=== PATIENT | male | born 1980 | race Caucasian/White ===

== ENCOUNTER 2021-01-22 14:42 | Observation (INO) | payer SELFPAY ==
[2021-01-22 14:47] VITALS: BP 111/62; PULSE 99; RESP 20; TEMP 36.6; O2SAT 95; BMI 22.9
--- NOTE | 2021-01-22 14:59 | PC.NURSE ---
Patient is positive on the SI screening. Treatment room is being cleaned at this time to get patient back. Sitter placed next to patient in waiting room until room is clean. 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
--- NOTE | 2021-01-22 15:25 | ECG_ITS ---
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 Measurements Intervals [place] Rate: 86 P: 80 ND: 177 QRS: 78 QRSD: 94 T: 158 QT: 416 QTc: 499 Interpretive Statements SINUS RHYTHM NONSPECIFIC ST & T-WAVE ABNORMALITY No previous ECG available for comparison Electronically Signed On 01-24-2021 8:00:08 CDT by Bao Carbajal M.D. [id number]
--- NOTE | 2021-01-22 15:25 | ED_ITS ---
HPI - Psych General: Chief Complaint: Psychiatric Symptoms Stated Complaint: DETOX Time Seen by Provider: 01/22/21 15:13 History of Present Illness: HPI Narrative: This patient is a 40-year-old male who presents to the emergency department with complaint of suicidal ideation. Then patient corrects himself and states that he is here because he needs a place to stay because he wants to check himself into [place] [address] to have a kick of methamphetamine. Patient states [facility] [address] facility cannot put him in the their facility to 3 days from now. Patient states that he was at the [facility] in [place] last night for evaluation was there for for several hours and then was discharged home. Patient admits that he did use drugs again today prior to returning to the hospital. Will do medical evaluation treat as needed. MD complaint: suicidal ideation and other Associated psychiatric symptoms: suicidal ideation Associated symptoms: Reports suicidal ideation; Deny depression Review of Systems General: Reports: 10 or more systems reviewed and unremarkable except in HPI and below Const: Denies: fever(s), chills, body aches or fatigue Eyes: Denies: change in vision or blurry vision ENMT: Denies: throat pain, hoarseness or mouth pain Card: Denies: chest pain, palpitations, irregular heart rhythm, edema, swelling of feet/ankles or lightheadedness Resp: Denies: dyspnea, productive cough, non-productive cough, wheezing or pain on inspiration GI: Denies: abdominal pain, nausea or vomiting : Denies: flank pain, dysuria, urinary frequency, urinary urgency or urinary hesitancy Musc: Denies: neck pain, back pain, extremity pain, extremity swelling, joint pain, joint swelling, joint redness, joint warmth or limited range of motion Skin/Breast: Denies: rash, pruritus, erythema or skin tenderness Neuro: Denies: headache(s), numbness in extremities or weakness in extremities Psych: Reports: suicidal ideation; Denies: depression Physical Exam Const: COMMON NORMALS: no acute distress, average body habitus, patient oriented x3, no limitations, healthy appearing, alert and well nourished HENMT: COMMON NORMALS: normocephalic, atraumatic, hearing grossly normal bilaterally, external ears normal, EAC's normal, TM's normal bilaterally, Normal external nose present, Normal nasal mucous membranes and turbinates present, moist oral mucous membranes, oropharynx normal, dentition normal and gingiva normal HEAD & SCALP: normocephalic and atraumatic NOSE: Normal external nose present and Normal nasal mucous membranes and turbinates present EXTERNAL EAR: Yes external ears normal EXTERNAL AUDITORY CANAL: EAC's normal TYMPANIC MEMBRANE: TM's normal bilaterally Neck/C-Spine: COMMON NORMALS: full ROM, no lymphadenopathy, supple, no meningeal signs, no JVD, Thyroid normal and No carotid bruits THYROID: Thyroid normal Chest: COMMONS NORMALS: normal inspection of the chest, normal palpation of entire chest wall, normal inspection of the breasts and normal palpation of the breasts Breast/axilla inspection: Yes normal inspection of the breasts BREAST/AXILLA PALPATION: Yes normal palpation of the breasts Resp: COMMON NORMALS: normal respiratory effort, No retractions, No use of accessory muscles, clear to auscultation bilaterally and percussion normal AUSCULTATION: clear to auscultation bilaterally PERCUSSION: percussion normal Cardio: COMMON NORMALS: no JVD, regular rate, regular rhythm, S1 normal heart sound present, S2 normal heart sound present, No gallops present (Cardio), No clicks present (Cardio), No murmurs present (Cardio), No rub (Cardio) and Peripheral pulses 2+ throughout RATE: regular rate RHYTHM: regular rhythm HEART SOUNDS: S1 normal heart sound present and S2 normal heart sound present PERIPHERAL PULSES: Peripheral pulses 2+ throughout GI: COMMON NORMALS: Normal to inspection, nondistended, normoactive bowel sounds present, Soft to palpation, non-tender, No hepatosplenomegaly present, no masses and no bruits PALPATION: Yes Soft to palpation and Yes No hepatosplenomegaly present : COMMON NORMALS: Yes no CVA tenderness BLADDER/KIDNEY EXAM: Yes no CVA tenderness Back/Pelvis: COMMON NORMALS: no CVA tenderness, thoracic and lumbar spine normal to inspection, no thoracic nor lumbar tenderness, thoraco-lumbar ROM no rmal and straight leg raise negative bilaterally Extremity: COMMON NORMALS: normal to inspection, full ROM, capillary refill normal, no joint enlargement, no clubbing, cyanosis or edema, no calf tenderness and no pedal edema Neuro: COMMON NORMALS: patient oriented x3 SENSORIUM/ORIENTATION: Yes alert MENINGEAL SIGNS: Yes no meningeal signs Face to Face: Restrn/Seclusion Events leading up to initiation: Verbalizing threat to self or others Evaluation of patient's immediate situation: Alert and oriented and No signs of physical distress Recent labs reviewed: Yes Review of medications: Yes Course Consultations: Consultation #1: I did discuss at length with Dr. Barron psychiatry who agrees to see the patient. He will see the patient due to patient's complaint of concerning for may be suicidal ideation. Time: 15:35 Consultation #2: Dr. Barron is agreeable to admit the patient for further evaluation for suicidal ideation and drug abuse. He will write additional orders. Time: 17:45 Vital Signs: Vital signs: Vital Signs Temperature 97.8 F 01/22/21 14:47 Pulse Rate 99 01/22/21 14:47 Respiratory Rate 20 H 01/22/21 14:47 Blood Pressure 111/62 01/22/21 14:47 Pulse Oximetry 95 01/22/21 14:47 MDM - Psych Differential Diagnosis: Psych Differential Diagnosis: Likely acute psychosis, suicidal ideation and drug-induced psychotic disorder Medical Records: Attestation: I reviewed the patient's medical records. Lab Data: Attestation: I reviewed the patient's lab results. Labs: Lab Results 01/22/21 01/22/21 01/22/21 Range/Units 13:50 13:50 15:45 WBC 7.5 (4.0-10.0) 10^3/ uL RBC 4.61 (4.1-5.3) 10^6/u L Hgb 15.1 (11.7-16.6) g/dL Hct 45.6 (42.0-52.0) % MCV 98.9 H (80-94) fL MCH 32.8 (28.0-34.0) pg MCHC 33.1 (30.0-36.0) g/dL RDW 12.6 (12.1-15.1) % Plt Count 232 (130-400) 10^3/c mm MPV 9.5 (7.4-10.4) fL Neut % (Auto) 57.0 % Lymph % (Auto) 28.8 % Sebastian % (Auto) 9.1 % Eos % (Auto) 4.5 % Baso % (Auto) 0.5 % Neut # (Auto) 4.28 (1.8-7.7) 10^3/u L Lymph # (Auto) 2.2 (0.8-4.8) 10^3/u L Sebastian # (Auto) 0.7 (0.2-0.9) 10^3/u L Eos # (Auto) 0.3 (0.0-0.8) 10^3/u L Baso # (Auto) 0.0 (0.0-0.1) 10^3/u L Nucleated RBC % (a uto) 0 % Nucleated RBCs # 0.0 /100WBC Sodium 139 (136-145) mmol/L Potassium 3.5 (3.5-5.1) mmol/L Chloride 102 (98-107) mmol/L Carbon Dioxide 27 (22-29) mmol/L Anion Gap 13.5 (5-19) BUN 15 (6-20) mg/dL Creatinine 0.9 (0.7-1.2) mg/dL GFR Calculation 93.9 (90-130) mL/min Glucose 78 (65-115) mg/dL Calculated Osmolal ity 288 (285-295) mOsm/k g Calcium 8.3 L (8.5-10.5) mg/dL Total Bilirubin 0.9 (0.15-1.2) mg/dL AST 20 (0-40) U/L ALT 21 (0-41) U/L Alkaline Phosphata se 86 (40-130) IU/L Total Protein 7.0 (6.6-8.7) g/dL Albumin 4.2 (3.5-5.2) g/dL Globulin 2.8 (1.3-4.6) g/dL Urine Color Yellow (Yellow) Urine Appearance Clear (CLEAR) Urine pH 5 (5-7) Ur Specific Gravit y 1.010 (1.005-1.030) Urine Protein Neg (Negative) Urine Glucose (UA) Norm (Normal) Urine Ketones Negative (Negative) Urine Blood Neg (Negative) Urine Nitrate Negative (Negative) Urine Bilirubin Neg (Negative) Urine Urobilinogen 4 H (Negative) mg/dL Ur Leukocyte Leela ase Negative (Negative) Salicylates < 0.3 L (3-10) mg/dL Urine Opiates Scre en (Negative) ng/mL Acetaminophen < 5.0 L (10-30) ug/mL Ur Barbiturates Sc reen (Negative) ng/mL Ur Phencyclidine S crn (Negative) ng/mL Ur Amphetamines Sc reen (Negative) ng/mL U Benzodiazepines Scrn (Negative) ng/mL Urine Cocaine Scre en (Negative) ng/mL U Marijuana (THC) Screen (Negative) ng/mL 01/22/21 Range/Units 15:45 WBC (4.0-10.0) 10^3/ uL RBC (4.1-5.3) 10^6/u L Hgb (11.7-16.6) g/dL Hct (42.0-52.0) % MCV (80-94) fL MCH (28.0-34.0) pg MCHC (30.0-36.0) g/dL RDW (12.1-15.1) % Plt Count (130-400) 10^3/c mm MPV (7.4-10.4) fL Neut % (Auto) % Lymph % (Auto) % Sebastian % (Auto) % Eos % (Auto) % Baso % (Auto) % Neut # (Auto) (1.8-7.7) 10^3/u L Lymph # (Auto) (0.8-4.8) 10^3/u L Sebastian # (Auto) (0.2-0.9) 10^3/u L Eos # (Auto) (0.0-0.8) 10^3/u L Baso # (Auto) (0.0-0.1) 10^3/u L Nucleated RBC % (a uto) % Nucleated RBCs # /100WBC Sodium (136-145) mmol/L Potassium (3.5-5.1) mmol/L Chloride (98-107) mmol/L Carbon Dioxide (22-29) mmol/L Anion Gap (5-19) BUN (6-20) mg/dL Creatinine (0.7-1.2) mg/dL GFR Calculation (90-130) mL/min Glucose (65-115) mg/dL Calculated Osmolal ity (285-295) mOsm/k g Calcium (8.5-10.5) mg/dL Total Bilirubin (0.15-1.2) mg/dL AST (0-40) U/L ALT (0-41) U/L Alkaline Phosphata se (40-130) IU/L Total Protein (6.6-8.7) g/dL Albumin (3.5-5.2) g/dL Globulin (1.3-4.6) g/dL Urine Color (Yellow) Urine Appearance (CLEAR) Urine pH (5-7) Ur Specific Gravit y (1.005-1.030) Urine Protein (Negative) Urine Glucose (UA) (Normal) Urine Ketones (Negative) Urine Blood (Negative) Urine Nitrate (Negative) Urine Bilirubin (Negative) Urine Urobilinogen (Negative) mg/dL Ur Leukocyte Leela ase (Negative) Salicylates (3-10) mg/dL Urine Opiates Scre en Negative (Negative) ng/mL Acetaminophen (10-30) ug/mL Ur Barbiturates Sc reen Negative (Negative) ng/mL Ur Phencyclidine S crn Negative (Negative) ng/mL Ur Amphetamines Sc reen Positive H (Negative) ng/mL U Benzodiazepines Scrn Negative (Negative) ng/mL Urine Cocaine Scre en Negative (Negative) ng/mL U Marijuana (THC) Screen Negative (Negative) ng/mL EKG Data^: EKG 1: Attestation: I personally reviewed and interpreted this EKG as follows: EKG interpretation date: 01/22/21 EKG interpretation time: 16:37 Prior EKG tracings: not available for review Interpretation: Sinus rhythm with nonspecific EKG changes heart rate 86 Discharge Plan Discharge Patient Disposition: Placed in Observation Clinical Impression: Drug abuse, Suicidal ideation Condition: Stable Prescriptions: No Action No Known Home Medications RF: 0 Coding Level of Care Code ED 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
[2021-01-22 15:48] LABS: Add Urine Microscopic? NO; Charge for UA Resulting for Rev
[2021-01-22 15:54] LABS: Bilirubin Urine Neg (Negative); Blood Urine Neg (Negative); Glucose Urine UA Norm (Normal); Ketones Urine Negative (Negative); Leukocyte Esterase Urine Negative (Negative); Nitrate Urine Negative (Negative); Protein Urine Neg (Negative); Urine Appearance Clear (CLEAR); Urine Color Yellow (Yellow); Urobilinogen Urine 4 mg/dL (Negative); pH Urine 5 (5-7)
[2021-01-22 16:02] LABS: Amphetamines Screen Urine Positive (Negative); Barbiturates Screen Urine Negative (Negative); Benzodiazepines Screen Urine Negative (Negative); Cocaine Screen Urine Negative (Negative); Opiate Screen Urine Negative (Negative); PCP Screen Urine Negative (Negative); THC Screen Urine Negative (Negative)
[2021-01-22 16:04] LABS: Basophils % 0.5 %; Eosinophils # 0.3 10^3/uL (0.0-0.8); Eosinophils % 4.5 %; Hematocrit 45.6 % (42.0-52.0); Hemoglobin 15.1 g/dL (11.7-16.6); Lymphocytes # 2.2 10^3/uL (0.8-4.8); Lymphocytes % 28.8 %; Mean Corpuscular HGB Conc 33.1 g/dL (30.0-36.0); Mean Corpuscular Hemoglobin 32.8 pg (28.0-34.0); Mean Corpuscular Volume 98.9 fL (80-94); Mean Platelet Volume 9.5 fL (7.4-10.4); Monocytes # 0.7 10^3/uL (0.2-0.9); Monocytes % 9.1 %; Neutrophils # 4.28 10^3/uL (1.8-7.7); Nucleated Red Blood Cells % 0 %; Platelet Count 232 10^3/cmm (130-400); Red Blood Count 4.61 10^6/uL (4.1-5.3); Red Cell Distribution Width 12.6 % (12.1-15.1); White Blood Count 7.5 10^3/uL (4.0-10.0)
[2021-01-22 16:19] LABS: Alanine Aminotransferase 21 U/L (0-41); Albumin Level 4.2 g/dL (3.5-5.2); Alkaline Phosphatase 86 IU/L (40-130); Anion Gap 13.5 (5-19); Aspartate Amino Transferase 20 U/L (0-40); Blood Urea Nitrogen 15 mg/dL (6-20); Calcium 8.3 mg/dL (8.5-10.5); Carbon Dioxide 27 mmol/L (22-29); Chloride 102 mmol/L (98-107); Globulin 2.8 g/dL (1.3-4.6); Glomerular Filtration Rate 93.9 mL/min (90-130); Glucose 78 mg/dL (65-115); Osmolality Calculated 288 mOsm/kg (285-295); Potassium 3.5 mmol/L (3.5-5.1); Sodium 139 mmol/L (136-145); Total Bilirubin 0.9 mg/dL (0.15-1.2)
[2021-01-22 16:21] LABS: Acetaminophen < 5.0 ug/mL (10-30); Salicylate < 0.3 mg/dL (3-10)
[2021-01-22 18:25] VITALS: PULSE 75; RESP 17; O2SAT 100
[2021-01-22 19:37] VITALS: BP 122/82; PULSE 82; RESP 17; TEMP 36.9; O2SAT 97
[2021-01-22] MEDS: simethicone 80 mg Chew PO (21:22)
[2021-01-22] MEDS: trazodone 50 mg Tablet PO (21:22)
[2021-01-22] MEDS: hyDROXYzine 25 mg Capsule 50 MG PO (21:22)
[2021-01-22] MEDS: nicotine 2 mg Gum BUCCAL (21:23)
[2021-01-22 22:00] VITALS: BP 109/68; PULSE 87; RESP 18; TEMP 36.7; O2SAT 95
[2021-01-23 06:00] VITALS: BP 95/56; PULSE 74; RESP 15; TEMP 36.8; O2SAT 98
--- NOTE | 2021-01-23 13:12 | P.SS_ITS ---
Short Stay Summary Providers Date of Admit/Discharge: 02/09/21 Attending Provider: Shaw Barron MD Chief Complaint: DETOX HPI History of Present Illness Kristopher Oates is a 40 year old male who presented to the emergency department with the following report: HPI Narrative: This patient is a 40-year-old male who presents to the emergency department with complaint of suicidal ideation. Then patient corrects himself and states that he is here because he needs a place to stay because he wants to check himself into [facility] [address] to have a kick of methamphetamine. Patient states [facility] [address] facility cannot put him in the their facility to 3 days from now. Patient states that he was at the [facility] in [place] last night for evaluation was there for for several hours and then was discharged home. Patient admits that he did use drugs again today prior to returning to the hospital. Will do medical evaluation treat as needed. MD complaint: suicidal ideation and other Associated psychiatric symptoms: suicidal ideation Associated symptoms: Reports suicidal ideation; Deny depression. He was admitted to the neuropsychiatric unit for definitive treatment of those i ssues. Kristopher presents today having presented to the emergency department endorsing lethality and feeling like if he does not maintain sobriety he will not survive. He presents reporting no significant outpatient or inpatient treatment. He reports that he smokes cigarettes, does not drink alcohol often, does not smoke marijuana with regularity he denies any other illicit drugs except for methamphetamine. He reports that his life has gotten out of control. He knows that he needs a long-term sober living facility and has gotten very depressed that his inability to discontinue his methamphetamine use to the point where he feels like he is going to and at times think about killing himself. We discussed his connection with [facility] [address] and his need to get there Friday. He work with the treatment team to determine what options are available to assist in this fashion. He feels him anyway he is directable advised not using last night and is talking to his support system to see if anybody can help for the next few days. We discussed the risk benefits and alternatives of infection: And a few other medications and he understood but felt that his primary focus should be on getting to a controlled environment and that once he got to the first part of withdrawal and craving he would be fine he just can never get there. I get a history: As above. Subs abuse history: As above. Family history: He reports that there is some addiction around in his family but denies any suicide attempt or completions in his family. Developmental history: There were no problems with the , or delivery, learned to walk and talk and met developmental milestones on time, and denies need for speech therapy, learning support, emotional support or special education classes. Psychosocial history: He denied any contributory information reports he is currently unemployed and ultimately homeless as he had to get his life back in order. Legal history: He endorses significant legal issues that occurred in his road to sobriety but denies any current issues but he may be on probation/parole. Medical history: Denies any current issues. Please see ED note for full details. Mental status examination: This is a well-nourished well-developed white male in hospital scrubs with limited grooming and eye contact. No abnormal movements except for some psychomotor retardation. Cooperative with exam in mild distress. Speech was decreased rate and volume. Mood described as better than yesterday affect congruent. Thought process organized. Thought content: Patient denied current suicidal or homicidal ideations, there were no delusions reported or noted, he denied any auditory or visual hallucinations. Attention and concentration appear intact and memory appeared reliable but none were formally tested. He is alert and oriented x3. Insight and judgment are improving impulse control is limited. Assessment: This 40-year-old white male with a long history of addiction and recent struggles with his mental health secondary to his continued struggles with addiction who presents with a plan for a long-term rehab but struggling with how to get to the rehab sober enough to be excepted and have success. 1. Continue current medication. 2. Continue every 15 minute checks for safety. 3. Encourage individual, group and milieu therapies. 4. Encourage sober living treatment after discharge at the highest level of care to which he is willing to commit. Home Meds/Allergies Home Medications and Allergies Home Medications Medication Instructions Recorded Confirmed Type No Known Home Medications 01/22/21 01/22/21 History Allergies Allergy/AdvReac Type Severity Reaction Status Date / Time Penicillins Allergy Unknown Verified 01/22/21 14:55 Vitals/I&O/Wt Last Vital Signs Temp 98.2 F 01/23/21 06:00 Pulse 74 01/23/21 06:00 Resp 15 01/23/21 06:00 BP 95/56 01/23/21 06:00 Pulse Ox 98 01/23/21 06:00 Weight last 48 hrs Weight 72.575 kg Hospital Course Hospital Course Kristopher presented to the emergency department endorsing lethality and depression with active use. He was admitted to the neuropsychiatric unit for definitive treatment of those issues. He quickly acclimated to the individual, group and milieu therapies provided. It became clear that he was not lethal but needed davies pport in maintaining sobriety between now and his presentation at the long-term treatment facility on Friday. The treatment team/social work specialist work with him and his family to get reasonable supports in place for the next several days and he was able to contract for safety outside of the hospital. We did not start any medications but he did have modest to marked improvement. during the hospitalization, patient had routine laboratory studies which were within normal limits except for few outliers. Additionally there was a general medical evaluation which was also within normal limits and revealed no new acute processes. Discharge Summary At the time of discharge, denies psychosis or lethality. Mood and anxiety were well managed. Patient endorsed a plan to avoid all drugs of abuse and follow-up with the aftercare recommendations of the treatment team. Patient was evaluated and deemed to be absent credible lethality, and had achieved the maximum benefit from an inpatient hospitalization, so was discharged. Diagnoses at Discharge Discharge Diagnosis (1) Drug abuse: Status: Acute (2) Suicidal ideation: Status: Resolved (3) Adjustment disorder with mixed disturbance of emotions and conduct: Status: Acute (4) Anxiety: Status: Acute (5) Methamphetamine abuse: Status: Acute Discharge Plan Discharge Patient Disposition: Home Condition: Stable Prescriptions: Continued No Known Home Medications RF: 0 Discharge Orders: Discharge Order (Routine); Ordered 01/23/21 Ordered By: Shaw Barron Discharge Diet: Regular Discharge Activity: Resume usual activity Patient Instructions: Opioid Safety Attestations Medical Necessity Statement*: Inpatient hospitalization is no longer medically necessary or the clinically appropriate imaging at this time. Patient was supported in his crisis and appropriate resources were brought into play. He was able to contract for safety prior to discharge with plan to go to [facility] 3:16 on Friday. Time Spent in Patient Care*: greater than 30 min Specific Discharge Activities: Specific discharge activities: educating patient, discussing with upper caser/social workers/dc planners, documenting/other paperwork and evaluating patient/reviewing data Quality Metrics Clinical Quality Measures: During this hospital stay, did patient experience: None Coding Level of Care Code Acute Fire Protection Inspector for Chg Fwd Diagnoses Drug abuse F19.10 Suicidal ideation R45.851 Adjustment disorder with mixed disturbance of emotions and conduct F43.25 Anxiety F41.9 Methamphetamine abuse F15.10
[2021-01-23 13:27] VITALS: BP 95/56; PULSE 74; RESP 15; TEMP 36.8; O2SAT 98
== END 2021-01-23 14:20 | disposition home or self-care (01) ==
LOC: ER 17:47 → NP 01-23 13:14
PROVIDERS: Admitting Provider Psychiatry & Neurology Psychiatry; Emergency Provider Emergency Medicine; Visit Provider Psychiatry & Neurology Psychiatry
DX: F19.10 Other psychoactive substance abuse, uncomplicated (principal); R45.851 Suicidal ideations; F43.25 Adjustment disorder with mixed disturbance of emotions and conduct; F41.9 Anxiety disorder, unspecified; F15.10 Other stimulant abuse, uncomplicated
CPT/HCPCS: 80053; 80306; 80307; 81003; 85025; 93005; 99285; G0378

== ENCOUNTER 2021-06-07 00:42 | Emergency (ER) | payer SELFPAY ==
[2021-06-07] VITALS (7 sets, daily range): BP systolic 85–152; BP diastolic 51–119; PULSE 74–96; RESP 16–30; TEMP 36.3; O2SAT 94–100; BMI 22.9
--- NOTE | 2021-06-07 00:43 | XRR_ITS ---
PROCEDURE INFORMATION: Exam: XR Chest Exam date and time: 06/07/2021 12:43 AM Age: 41 years old Clinical indication: Pain; Shortness of breath; Chest pressure; Patient HX: Cp with SOB. TECHNIQUE: Imaging protocol: XR of the chest. Views: 1 view. COMPARISON: CT Chest/Abdomen/Pelvis w IV* 06/03/2016 4:39 PM FINDINGS: Lungs: Unremarkable. No consolidation. Pleural spaces: Unremarkable. No pleural effusion. No pneumothorax. Heart/Mediastinum: Unremarkable. No cardiomegaly. Bones/joints: Unremarkable. XR/XR chest 1V portable [id number] IMPRESSION: No acute findings.
--- NOTE | 2021-06-07 00:43 | ECG_ITS ---
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 Measurements Intervals [place] Rate: 91 P: 73 NM: 194 QRS: 65 QRSD: 88 T: 56 QT: 366 QTc: 451 Interpretive Statements SINUS RHYTHM INTERPRETATION BASED ON A DEFAULT AGE OF 41 YEARS Compared to ECG 01/22/2021 16:37:08 T-wave abnormality no longer present Electronically Signed On 06-08-2021 18:56:07 CDT by Urmila Lord M.D. [email or web address] memorial [email or web address] county [email or web address]/store/NU/[id number] [email or web address]
--- NOTE | 2021-06-07 00:58 | W.ED.ANXIETY ---
HPI - Anxiety General: Chief Complaint: Anxiety Stated Complaint: chest pain,sob Time Seen by Provider: 06/07/21 00:44 Source: patient Mode of arrival: ambulatory Limitations: no limitations History of Present Illness: HPI narrative: 41-year-old male states that he started having shortness of breath along with chest pain now ago. Started suddenly states that he was having tachypnea and felt like a negative being under control. Patient's 6-year-old child did get transferred to [facility] from here earlier tonight with history of heart transplant and fever. He states he has been feeling very anxious and stressed out due to that. Denies any vomiting or diarrhea. Denies any fever. He states that his symptoms have improved and he is starting to feel improved as well. He states the pain he is having a sharp in nature. Associated symptoms: Reports chest pain; Deny chills, fever(s), headache(s), nausea or vomiting Review of Systems Const: Denies: fever(s), chills, body aches or change in appetite Eyes: Denies: blurry vision or eye discomfort ENMT: Denies: throat pain or dental pain Card: Reports: chest pain Resp: Reports: dyspnea GI: Denies: abdominal pain, nausea, vomiting or diarrhea : Denies: dysuria Musc: Denies: neck pain or back pain Skin/Breast: Denies: rash Neuro: Denies: headache(s) Psych: Denies: depression Zaid/Lymph: Denies: easy bruising All/Imm: Denies: urticaria Physical Exam Const: COMMON NORMALS: no acute distress, patient oriented x3 and healthy appearing HENMT: COMMON NORMALS: normocephalic and atraumatic HEAD & SCALP: normocephalic and atraumatic Eye: COMMON NORMALS: Equal, round and reactive pupils present and EOMs intact bilaterally PUPIL: Yes Equal, round and reactive pupils present Neck/C-Spine: COMMON NORMALS: full ROM and supple Chest: COMMONS NORMALS: normal inspection of the chest and normal palpation of entire chest wall Resp: COMMON NORMALS: normal respiratory effort, No retractions, No use of accessory muscles and clear to auscultation bilaterally AUSCULTATION: clear to auscultation bilaterally Cardio: COMMON NORMALS: regular rate, regular rhythm and No murmurs present (Cardio) RATE: regular rate RHYTHM: regular rhythm GI: COMMON NORMALS: Normal to inspection, nondistended, normoactive bowel sounds present, Soft to palpation, non-tender and no masses PALPATION: Yes Soft to palpation Extremity: COMMON NORMALS: normal to inspection and full ROM Neuro: COMMON NORMALS: patient oriented x3, moves all extremities and no focal motor deficits Psych: COMMON NORMALS: mental status grossly normal, Normal thought process present and cooperative THOUGHT PROCESS: Normal thought process present Skin: COMMON NORMALS: no rashes or lesions noted and no wounds GENERAL SKIN EXAM: no rashes or lesions noted Course Vital Signs: Vital signs: Vital Signs Temperature 97.3 F L 06/07/21 00:46 Pulse Rate 84 06/07/21 03:19 Respiratory Rate 16 06/07/21 03:19 Blood Pressure 101/74 06/07/21 03:19 Pulse Oximetry 98 06/07/21 03:19 MDM - Anxiety MDM Narrative: Medical decision making narrative: Insert chest pain dyspnea that since resolved is likely due to anxiety. His initial and repeat troponins here are negative and his EKG and x-ray are normal as well. He feels improved and is stable for discharge. He is to follow-up with PCP in 2 to 4 days return if worsening. Imaging Data^: CXR: Attestation: I personally reviewed and interpreted this imaging study as follows: My impression: no acute abnormality EKG Data^: EKG 1: Attestation: I personally reviewed and interpreted this EKG as follows: EKG interpretation date: 06/07/21 EKG interpretation time: 00:58 Interpretation: Chest X-Ray 06/07/21 00:43 IMPRESSION: No acute findings. nsr hr [address] or t wave abnormalities qrs 88 qtc 414 Other EKG comments: Chest X-Ray 06/07/21 00:43 IMPRESSION: No acute findings. Lab Data: Labs: Lab Results 06/07/21 06/07/21 06/07/21 Range/Units 01:05 01:05 01:05 WBC 8.8 (4.0-10.0) 10^3/ uL RBC 5.15 (4.1-5.3) 10^6/u L Hgb 17.2 H (11.7-16.6) g/dL Hct 49.0 (42.0-52.0) % MCV 95.1 H (80-94) fl MCH 33.4 (28.0-34.0) pg MCHC 35.1 (30.0-36.0) g/dL RDW 12.7 (12.1-15.1) % Plt Count 269 (130-400) 10^3/c mm MPV 9.1 (7.4-10.4) fL Neut % (Auto) 55.7 % Lymph % (Auto) 30.3 % [place] % (Auto) 10.6 % Eos % (Auto) 2.6 % Baso % (Auto) 0.7 % Neut # (Auto) 4.90 (1.8-7.7) 10^3/u L Lymph # (Auto) 2.7 (0.8-4.8) 10^3/u L [place] # (Auto) 0.9 (0.2-0.9) 10^3/u L Eos # (Auto) 0.2 (0.0-0.8) 10^3/u L Baso # (Auto) 0.1 (0.0-0.1) 10^3/u L Nucleated RBC % (a uto) 0 % Nucleated RBCs # 0.0 /100WBC Sodium 140 (136-145) mmol/L Potassium 3.8 (3.5-5.1) mmol/L Chloride 99 (98-107) mmol/L Carbon Dioxide 27 (22-29) mmol/L Anion Gap 17.8 (5-19) BUN 11 (6-20) mg/dL Creatinine 0.8 (0.7-1.2) mg/dL GFR Calculation 107.1 (90-130) mL/min Glucose 98 (65-115) mg/dL Calculated Osmolal ity 289 (285-295) mOsm/k g Calcium 8.8 (8.5-10.5) mg/dL Total Bilirubin 0.5 (0.15-1.2) mg/dL AST 86 H (0-40) U/L ALT 81 H (0-41) U/L Alkaline Phosphata se 123 (40-130) IU/L Troponin T Baselin e 6 (0-15) ng/L Troponin T 120 Min [place] (0-15) ng/L Delta Troponin T (0-10) ABS# NT-Pro-B Natriuret Pep 7 (0-125) pg/mL Total Protein 7.4 (6.6-8.7) g/dL Albumin 4.5 (3.5-5.2) g/dL Globulin 2.9 (1.3-4.6) g/dL 06/07/21 Range/Units 02:35 WBC (4.0-10.0) 10^3/ uL RBC (4.1-5.3) 10^6/u L Hgb (11.7-16.6) g/dL Hct (42.0-52.0) % MCV (80-94) fl MCH (28.0-34.0) pg MCHC (30.0-36.0) g/dL RDW (12.1-15.1) % Plt Count (130-400) 10^3/c mm MPV (7.4-10.4) fL Neut % (Auto) % Lymph % (Auto) % [place] % (Auto) % Eos % (Auto) % Baso % (Auto) % Neut # (Auto) (1.8-7.7) 10^3/u L Lymph # (Auto) (0.8-4.8) 10^3/u L [place] # (Auto) (0.2-0.9) 10^3/u L Eos # (Auto) (0.0-0.8) 10^3/u L Baso # (Auto) (0.0-0.1) 10^3/u L Nucleated RBC % (a uto) % Nucleated RBCs # /100WBC Sodium (136-145) mmol/L Potassium (3.5-5.1) mmol/L Chloride (98-107) mmol/L Carbon Dioxide (22-29) mmol/L Anion Gap (5-19) BUN (6-20) mg/dL Creatinine (0.7-1.2) mg/dL GFR Calculation (90-130) mL/min Glucose (65-115) mg/dL Calculated Osmolal ity (285-295) mOsm/k g Calcium (8.5-10.5) mg/dL Total Bilirubin (0.15-1.2) mg/dL AST (0-40) U/L ALT (0-41) U/L Alkaline Phosphata se (40-130) IU/L Troponin T Baselin e (0-15) ng/L Troponin T 120 Min [place] 6.31 (0-15) ng/L Delta Troponin T 0.31 (0-10) ABS# NT-Pro-B Natriuret Pep (0-125) pg/mL Total Protein (6.6-8.7) g/dL Albumin (3.5-5.2) g/dL Globulin (1.3-4.6) g/dL Discharge Plan Discharge Patient Disposition: Home Clinical Impression: Acute anxiety Chest pain Qualifiers: Chest pain type: unspecified Qualified Code(s): R07.9 - Chest pain, unspecified Condition: Stable Prescriptions: No Action No Known Home Medications RF: 0 Discharge Orders: Discharge ED (Routine); Ordered 06/07/21 Ordered By: Michelle Tovar Discharge Diet: Advance as tolerated Discharge Activity: Resume usual activity Patient Instructions: Chest Pain (ED) Coding Level of Care Code ED 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
[2021-06-07 01:14] LABS: Basophils # 0.1 10^3/uL (0.0-0.1); Basophils % 0.7 %; Eosinophils # 0.2 10^3/uL (0.0-0.8); Eosinophils % 2.6 %; Hemoglobin 17.2 g/dL (11.7-16.6); Lymphocytes # 2.7 10^3/uL (0.8-4.8); Lymphocytes % 30.3 %; Mean Corpuscular HGB Conc 35.1 g/dL (30.0-36.0); Mean Corpuscular Hemoglobin 33.4 pg (28.0-34.0); Mean Corpuscular Volume 95.1 fl (80-94); Mean Platelet Volume 9.1 fL (7.4-10.4); Monocytes # 0.9 10^3/uL (0.2-0.9); Monocytes % 10.6 %; Neutrophils % 55.7 %; Nucleated Red Blood Cells % 0 %; Platelet Count 269 10^3/cmm (130-400); Red Blood Count 5.15 10^6/uL (4.1-5.3); Red Cell Distribution Width 12.7 % (12.1-15.1); White Blood Count 8.8 10^3/uL (4.0-10.0)
[2021-06-07] MEDS: LORazepam 2 mg/mL INJ 1 mL 1 MG IVP (01:14)
[2021-06-07 01:37] LABS: Troponin(5th) Baseline 6 ng/L (0-15)
[2021-06-07 01:45] LABS: Alanine Aminotransferase 81 U/L (0-41); Albumin Level 4.5 g/dL (3.5-5.2); Alkaline Phosphatase 123 IU/L (40-130); Anion Gap 17.8 (5-19); Aspartate Amino Transferase 86 U/L (0-40); Blood Urea Nitrogen 11 mg/dL (6-20); Calcium 8.8 mg/dL (8.5-10.5); Carbon Dioxide 27 mmol/L (22-29); Chloride 99 mmol/L (98-107); Globulin 2.9 g/dL (1.3-4.6); Glomerular Filtration Rate 107.1 mL/min (90-130); Glucose 98 mg/dL (65-115); NT Pro B Type Natriuretic Pept 7 pg/mL (0-125); Osmolality Calculated 289 mOsm/kg (285-295); Potassium 3.8 mmol/L (3.5-5.1); Sodium 140 mmol/L (136-145); Total Bilirubin 0.5 mg/dL (0.15-1.2); Total Protein 7.4 g/dL (6.6-8.7)
[2021-06-07] MEDS: sodium chloride 0.9% 1,000 ML 999 ML IV (02:35)
[2021-06-07 03:09] LABS: Troponin 5 2HR 6.31 ng/L (0-15); Troponin 5 2HR Delta 0.31 ABS# (0-10)
== END 2021-06-07 03:19 | disposition home or self-care (01) ==
PROVIDERS: Emergency Provider Emergency Medicine
DX: F41.9 Anxiety disorder, unspecified (principal); R07.9 Chest pain, unspecified
CPT/HCPCS: 71045; 80053; 83880; 84484; 85025; 93005; 96361; 96374; 99284; J2060; J7030

== ENCOUNTER 2021-08-08 13:29 | Emergency (ER) | payer SELFPAY ==
[2021-08-08 13:34] VITALS: BP 126/78; PULSE 95; RESP 18; TEMP 36.7; O2SAT 99; BMI 23.6
--- NOTE | 2021-08-08 13:39 | CT_ITS ---
WS: [id number] CT ABDOMEN PELVIS TECHNIQUE: Contrast-enhanced CT of the abdomen and pelvis with coronal and sagittal reformatted image s. CLINICAL INFORMATION: abd pain COMPARISON: CT 2016 DLP: 1027.[address] scans at [facility] use at least one of these dose optimization techniques: automated e xposure control; mA and/or kV adjustment per patient size (includes targeted exams where dose is matc hed to clinical indication); or iterative reconstruction. FINDINGS: Hepatomegaly. Diffuse fatty infiltration liver. Normal portal vein and splenic vein. Normal gallbladd er. Small esophageal hiatal hernia. Adrenal glands are normal. Normal renal parenchymal enhancement. No hydronephrosis. Fat-containing umbilical hernia. Normal caliber abdominal aorta. Calcified enlarged prostate measuring 3.5 cm. No evidence of high-gra de small or large bowel obstruction. Thickening with mucosal enhancement and induration involving the right colon and transverse colon theo picious for infectious or inflammatory colitis. Descending colon has a more normal appearance. Normal air-filled appendix in the right lower quadrant. No evidence of acute appendicitis. CT/CT abdomen pelvis w con* [id number] IMPRESSION: 1. No evidence of acute appendicitis. Normal appendix. 2. Suspected right colon and transverse colon infectious/inflammatory colitis described above. 3. Enlarged prostate measuring 3.5 cm somewhat prominent for patient this age. Recommend Correlation PSA. 4. Diffuse fatty infiltration of the liver. 5. Tiny esophageal hiatal hernia. Attempted Av Parisi DO at 08/08/2021 2:45 PM.
--- NOTE | 2021-08-08 13:39 | XR_ITS ---
WS: [id number] Exam: XR chest 1V portable [id number] Date/Time of Exam: 08/08/2021 1:41 PM Reason For Exam: dyspnea/cough Comparison 06/07/2021. Findings: The lungs are clear and fully expanded. Costophrenic angles are sharp. No infiltrates. Bronchovascula r relief appears normal. Cardiac silhouette is unremarkable. Bony elements are intact. XR/XR chest 1V portable [id number] IMPRESSION: Unremarkable chest radiograph.
[2021-08-08] MEDS: ondansetron 2 mg/ML SDV 2 mL 4 MG IVP (13:55)
[2021-08-08] MEDS: sodium chloride 0.9% 1,000 ML 999 ML IV ×2 (13:55→15:26)
--- NOTE | 2021-08-08 13:55 | W.ED.ALCOHOL ---
HPI - Alcohol General: Chief Complaint: Alcohol Stated Complaint: ABD PAIN, ETOH Time Seen by Provider: 08/08/21 13:35 History of Present Illness: HPI narrative: 41-year-old male presents to the emergency room via EMS. Patient is complaining of right lower quadrant abdominal pain and midline abdominal pain suprapubically. He is a heavy drinker. He states he usually drinks 15 sugar bottles of whiskey per day although he states he is drank more than that today. Patient readily admits to drinking heavily on a daily basis for the last several years. He has had episodes of hematemesis none today. He denies any coffee-ground emesis. He denies any dysuria urgency or frequency his main complaint is abdominal discomfort at this time. Patient is obviously acutely intoxicated. 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 Chronic alcohol use: Yes Recent trauma: No Associated symptoms: Reports abdominal pain; Deny depression, diaphoresis, hematemesis, involuntary movements, melena, nausea, seizure-like activity, suicidal ideation, syncope or vomiting Treatments prior to arrival: none Review of Systems Const: Denies: diaphoresis ENMT: Denies: throat pain, ear or mastoid pain, nasal discharge or nasal congestion Card: Denies: syncope Resp: Denies: dyspnea, productive cough or non-productive cough GI: Reports: abdominal pain; Denies: nausea, vomiting, hematemesis or melena : Denies: flank pain, dysuria, urinary frequency or urinary urgency Skin/Breast: Denies: rash or pruritus Neuro: Denies: seizure-like activity or involuntary movements Psych: Denies: depression or suicidal ideation Physical Exam Const: COMMON NORMALS: no acute distress GENERAL APPEARANCE: cooperative and comfortable ORIENTATION/CONSCIOUSNESS: Yes awake, Yes oriented to person, Yes oriented to place and Yes oriented to time HENMT: COMMON NORMALS: normocephalic, atraumatic, hearing grossly normal bilaterally, external ears normal, EAC's normal, TM's normal bilaterally, Normal nasal mucous membranes and turbinates present, moist oral mucous membranes and oropharynx normal HEAD & SCALP: normocephalic and atraumatic NOSE: Normal nasal mucous membranes and turbinates present EXTERNAL EAR: Yes external ears normal EXTERNAL AUDITORY CANAL: EAC's normal TYMPANIC MEMBRANE: TM's normal bilaterally Eye: COMMON NORMALS: Equal, round and reactive pupils present, EOMs intact bilaterally, conjunctivae normal and no scleral icterus CONJUNCTIVA: Yes conjunctivae normal PUPIL: Yes Equal, round and reactive pupils present Neck/C-Spine: COMMON NORMALS: full ROM, no lymphadenopathy, supple and no JVD Lymph: LYMPHATIC: no lymphadenopathy noted and no lymphedema noted Resp: COMMON NORMALS: normal respiratory effort, No retractions, No use of accessory muscles and clear to auscultation bilaterally AUSCULTATION: clear to auscultation bilaterally Cardio: COMMON NORMALS: no JVD, regular rate, regular rhythm and No murmurs present (Cardio) RATE: regular rate RHYTHM: regular rhythm GI: PALPATION: Yes Tenderness to palpation present (GI) (Suprapubic and right lower quadrant abdominal discomfort.) and No Guarding due to palpation present (GI) Extremity: COMMON NORMALS: normal to inspection, capillary refill normal, no clubbing, cyanosis or edema, no calf tenderness and no pedal edema Neuro: SENSORIUM/ORIENTATION: Yes oriented to person, Yes oriented to place and Yes oriented to time Skin: COMMON NORMALS: no rashes or lesions noted GENERAL SKIN EXAM: no rashes or lesions noted Course Vital Signs: Vital signs: Vital Signs Temperature 98.1 F 08/08/21 13:34 Pulse Rate 88 08/08/21 14:00 Respiratory Rate 16 08/08/21 14:00 Blood Pressure 128/92 08/08/21 14:00 Pulse Oximetry 96 08/08/21 14:00 MDM - Alcohol MDM Narrative: Medical decision making narrative: Labs and imaging reviewed. [place] discharge home on Augmentin based on the CT findings also start on Protonix encourage patient to avoid alcohol use. Clear liquid diet for 24 to 48 hours and advance as tolerated follow-up with primary care doctor within next 7 to 10 days return for further problems. Lab Data: Labs: Lab Results 08/08/21 08/08/21 08/08/21 13:36 13:39 13:39 WBC 7.4 10^3/uL 10^3/ uL (4.0-10.0) RBC 5.25 10^6/uL 10^6 /uL (4.1-5.3) Hgb 18.0 g/dL H g/dL (11.7-16.6) Hct 51.7 % % (42.0-52.0) MCV 98.5 fl H fl (80-94) MCH 34.3 pg H pg (28.0-34.0) MCHC 34.8 g/dL g/dL (30.0-36.0) RDW 14.0 % % (12.1-15.1) Plt Count 232 10^3/cmm 10^3 /cmm (130-400) MPV 10.0 fL fL (7.4-10.4) Neut % (Auto) 58.9 % % Lymph % (Auto) 25.8 % % [place] % (Auto) 13.2 % % Eos % (Auto) 0.7 % % Baso % (Auto) 1.1 % % Neut # (Auto) 4.35 10^3/uL 10^3 /uL (1.8-7.7) Lymph # (Auto) 1.9 10^3/uL 10^3/ uL (0.8-4.8) [place] # (Auto) 1.0 10^3/uL H 10^ 3/uL (0.2-0.9) Eos # (Auto) 0.1 10^3/uL 10^3/ uL (0.0-0.8) Baso # (Auto) 0.1 10^3/uL 10^3/ uL (0.0-0.1) Nucleated RBC % (a uto) 0 % % Nucleated RBCs # 0.0 /100WBC /100W BC Sodium Cancelled Potassium Cancelled Chloride Cancelled Carbon Dioxide Cancelled Anion Gap Cancelled BUN Cancelled Creatinine Cancelled GFR Calculation Cancelled Glucose Cancelled Calculated Osmolal ity Cancelled Calcium Cancelled Total Bilirubin Cancelled AST Cancelled ALT Cancelled Alkaline Phosphata se Cancelled Creatine Kinase Cancelled Total Protein Cancelled Albumin Cancelled Globulin Cancelled Lipase Cancelled Urine Color Urine Appearance Urine pH Ur Specific Gravit y Urine Protein Urine Glucose (UA) Urine Ketones Urine Blood Urine Nitrate Urine Bilirubin Urine Urobilinogen Ur Leukocyte Leela ase Serum Ketones Negative (Negative) 08/08/21 13:45 WBC RBC Hgb Hct MCV MCH MCHC RDW Plt Count MPV Neut % (Auto) Lymph % (Auto) [place] % (Auto) Eos % (Auto) Baso % (Auto) Neut # (Auto) Lymph # (Auto) [place] # (Auto) Eos # (Auto) Baso # (Auto) Nucleated RBC % (a uto) Nucleated RBCs # Sodium Potassium Chloride Carbon Dioxide Anion Gap BUN Creatinine GFR Calculation Glucose Calculated Osmolal ity Calcium Total Bilirubin AST ALT Alkaline Phosphata se Creatine Kinase Total Protein Albumin Globulin Lipase Urine Color Straw (Yellow) Urine Appearance Clear (CLEAR) Urine pH 7 (5-7) Ur Specific Gravit y 1.000 L (1.005-1.030) Urine Protein Neg (Negative) Urine Glucose (UA) Norm (Normal) Urine Ketones Negative (Negative) Urine Blood Neg (Negative) Urine Nitrate Negative (Negative) Urine Bilirubin Neg (Negative) Urine Urobilinogen Norm mg/dL mg/dL (Negative) Ur Leukocyte Leela ase Negative (Negative) Serum Ketones Discharge Plan Discharge Patient Disposition: Home Clinical Impression: Colitis, Alcoholic intoxication Condition: Stable Prescriptions: New Augmentin 875-125 mg tablet 1 tab PO BID Qty: 20 RF: 0 Protonix 40 mg tablet,delayed release (DR/EC) 40 mg PO DAILY 56 Days Qty: 60 RF: 0 Discharge Orders: Discharge ED (Routine); Ordered 08/08/21 Ordered By: Av Parisi Discharge Diet: Clear Liquid Discharge Activity: Increase activity as tolerated Patient Instructions: Opioid Safety Activity Restrictions/Additional Instructions: Do not drink alcohol. Clear liquid diet x48 hours and advance as tolerated. 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
[2021-08-08 13:58] LABS: Basophils # 0.1 10^3/uL (0.0-0.1); Basophils % 1.1 %; Eosinophils # 0.1 10^3/uL (0.0-0.8); Eosinophils % 0.7 %; Hematocrit 51.7 % (42.0-52.0); Lymphocytes # 1.9 10^3/uL (0.8-4.8); Lymphocytes % 25.8 %; Mean Corpuscular HGB Conc 34.8 g/dL (30.0-36.0); Mean Corpuscular Hemoglobin 34.3 pg (28.0-34.0); Mean Corpuscular Volume 98.5 fl (80-94); Monocytes % 13.2 %; Neutrophils # 4.35 10^3/uL (1.8-7.7); Neutrophils % 58.9 %; Nucleated Red Blood Cells % 0 %; Platelet Count 232 10^3/cmm (130-400); Red Blood Count 5.25 10^6/uL (4.1-5.3); White Blood Count 7.4 10^3/uL (4.0-10.0)
[2021-08-08 14:00] VITALS: BP 128/92; PULSE 88; RESP 16; O2SAT 96
[2021-08-08] MEDS: iohexol 300 mg/mL 100 mL Btl IV (14:13)
[2021-08-08 15:05] LABS: Add Urine Microscopic? NO; Charge for UA Resulting for Rev
[2021-08-08 15:11] LABS: Urine Appearance Clear (CLEAR); Urine Color Straw (Yellow)
[2021-08-08 15:12] LABS: Ketone (Acetest) Serum Negative (Negative)
[2021-08-08 15:12] LABS: Bilirubin Urine Neg (Negative); Blood Urine Neg (Negative); Glucose Urine UA Norm (Normal); Ketones Urine Negative (Negative); Leukocyte Esterase Urine Negative (Negative); Nitrate Urine Negative (Negative); Protein Urine Neg (Negative); Urobilinogen Urine Norm (Negative); pH Urine 7 (5-7)
== END 2021-08-08 16:22 | disposition home or self-care (01) ==
PROVIDERS: Emergency Provider Family Medicine
DX: K52.9 Noninfective gastroenteritis and colitis, unspecified (principal); F10.129 Alcohol abuse with intoxication, unspecified; Y90.9 Presence of alcohol in blood, level not specified
CPT/HCPCS: 71045; 74177; 81003; 82009; 85025; 96361; 96374; 99284; J2405; J7030; Q9967

== ENCOUNTER 2021-12-10 15:04 | Inpatient (IN) | payer MEDICAID, SELFPAY ==
[2021-12-10] VITALS (8 sets, daily range): BP systolic 118–135; BP diastolic 73–90; PULSE 79–105; RESP 16–17; TEMP 36.7; O2SAT 95–97; BMI 24.3
--- NOTE | 2021-12-10 15:26 | PC.NURSE ---
Crisis office from behavioral healthcare called and stated per [place] patient has been sleeping in the park at [employer] and consuming lots of alcohol and generally having increased depression and thoughts of suicide.
--- NOTE | 2021-12-10 16:10 | ED.C_ITS ---
Documented by User: CHICHO Arnold 12/11/21 07:04 HPI - Psych General: Chief Complaint: Psychiatric Symptoms Stated Complaint: ETOH Time Seen by Provider: 12/10/21 15:57 Source: patient Mode of arrival: ambulatory Limitations: no limitations History of Present Illness: Patient is a 41-year-old male who presents to ED today with a complaint of depression, suicidal ideations, and hallucinations. Patient states he has felt suicidal for approximately a week now. He is having thoughts of wanting to kill himself by alcohol or drug overdose. Patient states he is seeing people and hearing voices come across the radio. Patient does admit to using anything and everything drug use alvarado. Last psychiatric hospitalization here was in January 2021. complaint: suicidal ideation and feels depressed Onset (ago): day(s) Duration: constant Exacerbating factors: alcohol and drug use Context: recent alcohol abuse and recent drug abuse Associated psychiatric symptoms: depression, suicidal ideation, auditory hallucinations and visual hallucinations Associated symptoms: Reports auditory hallucinations, visual hallucinations, depression and suicidal ideation; Deny homicidal ideation If self harm: admits thoughts of self harm Review of Systems Const: Denies: fever(s) or chills Card: Denies: chest pain, palpitations, lightheadedness or syncope Resp: Denies: dyspnea GI: Denies: abdominal pain, nausea, vomiting or diarrhea Skin/Breast: Denies: rash Neuro: Denies: headache(s) Psych: Reports: anxiety, depression, hopelessness, loss of interest, visual hallucinations, auditory hallucinations and suicidal ideation; Denies: homicidal ideation [facility] ED PFSH: Medical History (Updated 12/11/21 @ 11:18 by Lorenzo Obregon MD) Adjustment disorder with mixed disturbance of emotions and conduct Drug abuse Methamphetamine abuse Surgical History No pertinent past surgical history Physical Exam Const: COMMON NORMALS: no acute distress, patient oriented x3, alert and well nourished GENERAL APPEARANCE: cooperative Resp: COMMON NORMALS: normal respiratory effort and clear to auscultation bilaterally AUSCULTATION: clear to auscultation bilaterally Cardio: COMMON NORMALS: regular rate and regular rhythm RATE: regular rate RHYTHM: regular rhythm Neuro: NASEEM COMA SCALE: document GCS findings Naseem coma scale eye opening: Spontaneous Naseem coma scale verbal response: Orientated Naseem coma scale motor response: Obey commands [place] coma scale total score: 15 COMMON NORMALS: patient oriented x3, moves all extremities, no focal motor deficits and no sensory deficits noted SENSORIUM/ORIENTATION: Yes alert Psych: COMMON NORMALS: mental status grossly normal, Normal thought process present, cooperative, speech normal, activity/motor behavior normal and denies homicidal ideation APPEARANCE: Yes disheveled ATTITUDE: Yes calm ACTIVITY/MOTOR BEHAVIOR: No psychomotor agitation and Yes Avoids eye contact (attititude/behavior) SPEECH: Yes normal speech MOOD & AFFECT: Yes depr essed mood and Yes Flat affect present THOUGHT PROCESS: Normal thought pr ocess present THOUGHT CONTENT: Yes Normal thought content present ATTENTION/CONCENTRATION: Yes attention grossly intact and Yes concentration jason sly intact MEMORY/COGNITION: Yes memory grossly intact and Yes cognition grossly intact INSIGHT: Good insight present (Psych) JUDGEMENT: Good judgement present (Psych) Course 2 Vital Signs: Vital signs: Vital Signs Temperature 98.1 F 12/16/21 20:24 Pulse Rate 60 12/16/21 20:24 Respiratory Rate 17 12/16/21 20:24 Blood Pressure 107/70 12/16/21 20:24 Pulse Oximetry 99 12/16/21 20:24 MDM - Psych Lab Data : 12/10/21 15:33 12/10/21 15:33 Laboratory Results WBC 12.2 10^3/uL (4.0-10.0) H 12/10/21 15:33 RBC 5.35 10^6/uL (4.1-5.3) H 12/10/21 15:33 Hgb 17.0 g/dL (11.7-16.6) H 12/10/21 15:33 Hct 50.2 % (42.0-52.0) 12/10/21 15:33 MCV 93.8 fl (80-94) 12/10/21 15:33 MCH 31.8 pg (28.0-34.0) 12/10/21 15:33 MCHC 33.9 g/dL (30.0-36.0) 12/10/21 15:33 RDW 13.6 % (12.1-15.1) 12/10/21 15:33 Plt Count 352 10^3/cmm (130-400) 12/10/21 15:33 MPV 9.9 fL (7.4-10.4) 12/10/21 15:33 Neut % (Auto) 64.0 % 12/10/21 15: Lymph % (Auto) 25.3 % 12/10/21 15:33 Garza % (Auto) 6.5 % 12/10/21 15:33 Eos % (Auto) 3.5 % 12/10/21 15:33 Baso % (Auto) 0.5 % 12/10/21 15:33 Neut # (Auto) 7.80 10^3/uL (1.8-7.7) H 12/10/21 15: Lymph # (Auto) 3.1 10^3/uL (0.8-4.8) 12/10/21 15:33 Garza # (Auto) 0.8 10^3/uL (0.2-0.9) 12/10/21 15: Eos # (Auto) 0.4 10^3/uL (0.0-0.8) 12/10/21 15: Baso # (Auto) 0.1 10^3/uL (0.0-0.1) 12/10/21 15: Nucleated RBC % (auto) 0 % 12/10/21 15: Nucleated RBCs # 0.0 /100WBC 12/10/21 15:33 Sodium 136 mmol/L (136-145) 12/10/21 15:33 Potassium 2.9 mmol/L (3.5-5.1) L 12/10/21 15:33 Chloride 94 mmol/L (98-107) L 12/10/21 15:33 Carbon Dioxide 27 mmol/L (22-29) 12/10/21 15:33 Anion Gap 17.9 (5-19) 12/10/21 15:33 BUN 13 mg/dL (6-20) 12/10/21 15:33 Creatinine 0.8 mg/dL (0.7-1.2) 12/10/21 15:33 GFR Calculation 107.1 mL/min (90-130) 12/10/21 15:33 Glucose 127 mg/dL (65-115) H 12/10/21 15:33 Calculated Osmolality 284 mOsm/kg (285-295) L 12/10/21 15:33 Calcium 9.6 mg/dL (8.5-10.5) 12/10/21 15:33 Total Bilirubin 0.4 mg/dL (0.15-1.2) 12/10/21 15:33 AST 16 U/L (0-40) 12/10/21 15:33 ALT 25 U/L (0-41) 12/10/21 15:33 Alkaline Phosphatase 125 IU/L (40-130) 12/10/21 15:33 Total Protein 7.7 g/dL (6.6-8.7) 12/10/21 15:33 Albumin 4.6 g/dL (3.5-5.2) 12/10/21 15:33 Globulin 3.1 g/dL (1.3-4.6) 12/10/21 15:33 Salicylates < 0.3 mg/dL (3-10) L 12/10/21 15:33 Urine Opiates Screen Negative ng/mL (Negative) 12/10/21 16:31 Acetaminophen < 5.0 ug/mL (10-30) L 12/10/21 15:33 Ur Barbiturates Screen Negative ng/mL (Negative) 12/10/21 16:31 Ur Phencyclidine Scrn Negative ng/mL (Negative) 12/10/21 16:31 Ur Amphetamines Screen Positive ng/mL (Negative) H 12/10/21 16:31 U Benzodiazepines Scrn Negative ng/mL (Negative) 12/10/21 16:31 Urine Cocaine Screen Negative ng/mL (Negative) 12/10/21 16:31 U Marijuana (THC) Screen Negative ng/mL (Negative) 12/10/21 16:31 Ethyl Alcohol 182 mg/dL (0-10) H 12/10/21 15:33 Discharge Plan Discharge Patient Disposition: Admitted As Inpatient Admit Provider: Lorenzo Obregon Clinical Impression: Suicidal ideation, Hallucinations, Alcohol abuse, Hypokalemia Condition: Stable Sign Out Sign Out Data: Patient Sign Out occurred on 12/10/21 at 17:07. Patient's care was discussed, and care was transferred from to CHICHO Lindquist. Coding Level of Care Code ED Mortgage Loan Funder for Chg Fwd Exam Detailed Documented by User: CHICHO Lindquist 12/10/21 23:20 HPI - Psych General: Chief Complaint: Psychiatric Symptoms Stated Complaint: ETOH Time Seen by Provider: 12/10/21 15:57 [facility] ED PFSH: Medical History (Updated 12/11/21 @ 11:18 by Lorenzo Obregon MD) Adjustment disorder with mixed disturbance of emotions and conduct Drug abuse Methamphetamine abuse Surgical History No pertinent past surgical history Physical Exam Neuro: NASEEM COMA SCALE: document GCS findings Naseem coma scale total score: 15 Course Consultations: Consultation #1: I contacted Dr. Ramos the psych field installation technician physician. Until about patient case. I informed him of his potassium level being a little low at 2.9 that we gave him a dose of potassium here in the ED and he could use another dose while he is in NPU. He agreed that patient admitted to the NPU. Time: 18:00 Vital Signs: Vital signs: Vital Signs Temperature 98.1 F 12/16/21 20:24 Pulse Rate 60 12/16/21 20:24 Respiratory Rate 17 12/16/21 20:24 Blood Pressure 107/70 12/16/21 20:24 Pulse Oximetry 99 12/16/21 20:24 [facility] - Psych Medical Decision Making Patient is a 41-year-old male who comes to the ED feeling depressed and davies icidal. He admits to drug use. He states that he is hearing voices. Medical screening exam done on patient and he is cleared for admission to NPU. Amphetamines positive in urine, alcohol level 182. Potassium was 2.9 and he was given a dose of p.o. potassium here in the ED. I Contacted Dr. Ramos and told him about patient case. He agrees to have patient admitted into the NPU. I also told him about his potassium level and that another dose of potassium while in NPU would be advised. Patient admitted to NPU. Lab Data I reviewed the patient's lab results. : 12/10/21 15:33 12/10/21 15:33 Laboratory Results WBC 12.2 10^3/uL (4.0-10.0) H 12/10/21 15: RBC 5.35 10^6/uL (4.1-5.3) H 12/10/21 15: Hgb 17.0 g/dL (11.7-16.6) H 12/10/21 15:33 Hct 50.2 % (42.0-52.0) 12/10/21 15: MCV 93.8 fl (80-94) 12/10/21 15: MCH 31.8 pg (28.0-34.0) 12/10/21 15: MCHC 33.9 g/dL (30.0-36.0) 12/10/21 15: RDW 13.6 % (12.1-15.1) 12/10/21 15: Plt Count 352 10^3/cmm (130-400) 12/10/21 15: MPV 9.9 fL (7.4-10.4) 12/10/21 15: Neut % (Auto) 64.0 % 12/10/21 15: Lymph % (Auto) 25.3 % 12/10/21 15: Garza % (Auto) 6.5 % 12/10/21 15: Eos % (Auto) 3.5 % 12/10/21 15: Baso % (Auto) 0.5 % 12/10/21 15:33 Neut # (Auto) 7.80 10^3/uL (1.8-7.7) H 12/10/21 15: Lymph # (Auto) 3.1 10^3/uL (0.8-4.8) 12/10/21 15:33 Garza # (Auto) 0.8 10^3/uL (0.2-0.9) 12/10/21 15: Eos # (Auto) 0.4 10^3/uL (0.0-0.8) 12/10/21: Baso # (Auto) 0.1 10^3/uL (0.0-0.1) 12/10/21 15:33 Nucleated RBC % (auto) 0 % 12/10/21: Nucleated RBCs # 0.0 /100WBC 12/10/21 15:33 Sodium 136 mmol/L (136-145) 12/10/21 15:33 Potassium 2.9 mmol/L (3.5-5.1) L 12/10/21 15:33 Chloride 94 mmol/L (98-107) L 12/10/21 15:33 Carbon Dioxide 27 mmol/L (22-29) 12/10/21 15:33 Anion Gap 17.9 (5-19) 12/10/21 15:33 BUN 13 mg/dL (6-20) 12/10/21 15:33 Creatinine 0.8 mg/dL (0.7-1.2) 12/10/21 15:33 GFR Calculation 107.1 mL/min (90-130) 12/10/21 15:33 Glucose 127 mg/dL (65-115) H 12/10/21 15:33 Calculated Osmolality 284 mOsm/kg (285-295) L 12/10/21 15:33 Calcium 9.6 mg/dL (8.5-10.5) 12/10/21 15:33 Total Bilirubin 0.4 mg/dL (0.15-1.2) 12/10/21 15:33 AST 16 U/L (0-40) 12/10/21 15:33 ALT 25 U/L (0-41) 12/10/21 15:33 Alkaline Phosphatase 125 IU/L (40-130) 12/10/21 15:33 Total Protein 7.7 g/dL (6.6-8.7) 12/10/21 15:33 Albumin 4.6 g/dL (3.5-5.2) 12/10/21 15:33 Globulin 3.1 g/dL (1.3-4.6) 12/10/21 15:33 Salicylates < 0.3 mg/dL (3-10) L 12/10/21 15:33 Urine Opiates Screen Negative ng/mL (Negative) 12/10/21 16:31 Acetaminophen < 5.0 ug/mL (10-30) L 12/10/21 15:33 Ur Barbiturates Screen Negative ng/mL (Negative) 12/10/21 16:31 Ur Phencyclidine Scrn Negative ng/mL (Negative) 12/10/21 16:31 Ur Amphetamines Screen Positive ng/mL (Negative) H 12/10/21 16:31 U Benzodiazepines Scrn Negative ng/mL (Negative) 12/10/21 16:31 Urine Cocaine Screen Negative ng/mL (Negative) 12/10/21 16:31 U Marijuana (THC) Screen Negative ng/mL (Negative) 12/10/21 16:31 Ethyl Alcohol 182 mg/dL (0-10) H 12/10/21 15:33 Discharge Plan Discharge Patient Disposition: Admitted As Inpatient Admit Provider: Lorenzo Obregon Clinical Impression: Suicidal ideation, Hallucinations, Alcohol abuse, Hypokalemia Condition: Stable Sign Out Sign Out Data: Patient Sign Out occurred on 12/10/21 at 17:07. Patient's care was discussed, and care was transferred from to CHICHO Lindquist. Coding Level of Care Code ED Mortgage Loan Funder for Chg Fwd Exam Detailed Documented by User: Michael Luo MD 12/17/21 03:01 HPI - Psych General: Chief Complaint: Psychiatric Symptoms Stated Complaint: ETOH Time Seen by Provider: 12/10/21 15:57 [facility] ED PFSH: Medical History (Updated 12/11/21 @ 11:18 by Lorenzo Obregon MD) Adjustment disorder with mixed disturbance of emotions and conduct Drug abuse Methamphetamine abuse Surgical History No pertinent past surgical history Physical Exam Neuro: NASEEM COMA SCALE: document GCS findings Naseem coma scale total score: 15 Course Vital Signs: Vital signs: Vital Signs Temperature 98.1 F 12/16/21 20:24 Pulse Rate 60 12/16/21 20:24 Respiratory Rate 17 12/16/21 20:24 Blood Pressure 107/70 12/16/21 20:24 Pulse Oximetry 99 12/16/21 20:24 MDM - Psych Medical Decision Making Patient is a 41-year-old male who comes to the ED feeling depressed and suicidal. He admits to drug use. He states that he is hearing voices. Medical screening exam done on patient and he is cleared for admission to NPU. Amphetamines positive in urine, alcohol level 182. Potassium was 2.9 and he was given a dose of p.o. potassium here in the ED. I Contacted Dr. Obregon and told him about patient case. He agrees to have patient admitted into the NPU. I also told him about his potassium level and that another dose of potassium while in NPU would be advised. Patient admitted to NPU. I discussed this case with CHICHO Arnold. I have reviewed documentation. Michael Luo MD Emergency Medicine Lab Data : 12/10/21 15:33 12/10/21 15:33 Laboratory Results WBC 12.2 10^3/uL (4.0-10.0) H 12/10/21 15:33 RBC 5.35 10^6/uL (4.1-5.3) H 12/10/21 15:33 Hgb 17.0 g/dL (11.7-16.6) H 12/10/21 15:33 Hct 50.2 % (42.0-52.0) 12/10/21 15:33 MCV 93.8 fl (80-94) 12/10/21 15:33 MCH 31.8 pg (28.0-34.0) 12/10/21 15:33 MCHC 33.9 g/dL (30.0-36.0) 12/10/21 15:33 RDW 13.6 % (12.1-15.1) 12/10/21 15:33 Plt Count 352 10^3/cmm (130-400) 12/10/21 15:33 MPV 9.9 fL (7.4-10.4) 12/10/21 15:33 Neut % (Auto) 64.0 % 12/10/21 15:33 Lymph % (Auto) 25.3 % 12/10/21 15:33 Garza % (Auto) 6.5 % 12/10/21 15:33 Eos % (Auto) 3.5 % 12/10/21 15:33 Baso % (Auto) 0.5 % 12/10/21 15:33 Neut # (Auto) 7.80 10^3/uL (1.8-7.7) H 12/10/21 15:33 Lymph # (Auto) 3.1 10^3/uL (0.8-4.8) 12/10/21 15:33 Garza # (Auto) 0.8 10^3/uL (0.2-0.9) 12/10/21 15:33 Eos # (Auto) 0.4 10^3/uL (0.0-0.8) 12/10/21 15:33 Baso # (Auto) 0.1 10^3/uL (0.0-0.1) 12/10/21 15:33 Nucleated RBC % (auto) 0 % 12/10/21 15:33 Nucleated RBCs # 0.0 /100WBC 12/10/21 15:33 Sodium 136 mmol/L (136-145) 12/10/21 15:33 Potassium 2.9 mmol/L (3.5-5.1) L 12/10/21 15:33 Chloride 94 mmol/L (98-107) L 12/10/21 15:33 Carbon Dioxide 27 mmol/L (22-29) 12/10/21 15:33 Anion Gap 17.9 (5-19) 12/10/21 15:33 BUN 13 mg/dL (6-20) 12/10/21 15:33 Creatinine 0.8 mg/dL (0.7-1.2) 12/10/21 15:33 GFR Calculation 107.1 mL/min (90-130) 12/10/21 15:33 Glucose 127 mg/dL (65-115) H 12/10/21 15:33 Calculated Osmolality 284 mOsm/kg (285-295) L 12/10/21 15:33 Calcium 9.6 mg/dL (8.5-10.5) 12/10/21 15:33 Total Bilirubin 0.4 mg/dL (0.15-1.2) 12/10/21 15:33 AST 16 U/L (0-40) 12/10/21 15:33 ALT 25 U/L (0-41) 12/10/21 15:33 Alkaline Phosphatase 125 IU/L (40-130) 12/10/21 15:33 Total Protein 7.7 g/dL (6.6-8.7) 12/10/21 15:33 Albumin 4.6 g/dL (3.5-5.2) 12/10/21 15:33 Globulin 3.1 g/dL (1.3-4.6) 12/10/21 15:33 Salicylates < 0.3 mg/dL (3-10) L 12/10/21 15:33 Urine Opiates Screen Negative ng/mL (Negative) 12/10/21 16:31 Acetaminophen < 5.0 ug/mL (10-30) L 12/10/21 15:33 Ur Barbiturates Screen Negative ng/mL (Negative) 12/10/21 16:31 Ur Phencyclidine Scrn Negative ng/mL (Negative) 12/10/21 16:31 Ur Amphetamines Screen Positive ng/mL (Negative) H 12/10/21 16:31 U Benzodiazepines Scrn Negative ng/mL (Negative) 12/10/21 16:31 Urine Cocaine Screen Negative ng/mL (Negative) 12/10/21 16:31 U Marijuana (THC) Screen Negative ng/mL (Negative) 12/10/21 16:31 Ethyl Alcohol 182 mg/dL (0-10) H 12/10/21 15:33 Discharge Plan Discharge Patient Disposition: Admitted As Inpatient Admit Provider: Lorenzo Obregon Clinical Impression: Suicidal ideation, Hallucinations, Alcohol abuse, Hypokalemia Condition: Stable Sign Out Sign Out Data: Patient Sign Out occurred on 12/10/21 at 17:07. Patient's care was discussed, and care was transferred from to CHICHO Lindquist. Coding Level of Care Code ED Mortgage Loan Funder for Rosaura Fwd Exam Detailed
[2021-12-10 16:17] LABS: Basophils # 0.1 10^3/uL (0.0-0.1); Basophils % 0.5 %; Eosinophils # 0.4 10^3/uL (0.0-0.8); Eosinophils % 3.5 %; Hematocrit 50.2 % (42.0-52.0); Lymphocytes # 3.1 10^3/uL (0.8-4.8); Lymphocytes % 25.3 %; Mean Corpuscular HGB Conc 33.9 g/dL (30.0-36.0); Mean Corpuscular Hemoglobin 31.8 pg (28.0-34.0); Mean Corpuscular Volume 93.8 fl (80-94); Mean Platelet Volume 9.9 fL (7.4-10.4); Monocytes # 0.8 10^3/uL (0.2-0.9); Monocytes % 6.5 %; Nucleated Red Blood Cells % 0 %; Platelet Count 352 10^3/cmm (130-400); Red Blood Count 5.35 10^6/uL (4.1-5.3); Red Cell Distribution Width 13.6 % (12.1-15.1); White Blood Count 12.2 10^3/uL (4.0-10.0)
--- NOTE | 2021-12-10 16:42 | PC.PHAR ---
pt unable to tell medications or pharmacy. nothing on external med list
[2021-12-10 16:46] LABS: Alanine Aminotransferase 25 U/L (0-41); Albumin Level 4.6 g/dL (3.5-5.2); Alcohol Level 182 mg/dL (0-10); Alkaline Phosphatase 125 IU/L (40-130); Anion Gap 17.9 (5-19); Aspartate Amino Transferase 16 U/L (0-40); Blood Urea Nitrogen 13 mg/dL (6-20); Calcium 9.6 mg/dL (8.5-10.5); Carbon Dioxide 27 mmol/L (22-29); Chloride 94 mmol/L (98-107); Globulin 3.1 g/dL (1.3-4.6); Glomerular Filtration Rate 107.1 mL/min (90-130); Glucose 127 mg/dL (65-115); Osmolality Calculated 284 mOsm/kg (285-295); Sodium 136 mmol/L (136-145); Total Bilirubin 0.4 mg/dL (0.15-1.2); Total Protein 7.7 g/dL (6.6-8.7)
[2021-12-10 16:53] LABS: Acetaminophen < 5.0 ug/mL (10-30); Salicylate < 0.3 mg/dL (3-10)
[2021-12-10 16:55] LABS: Potassium 2.9 mmol/L (3.5-5.1)
[2021-12-10 17:04] LABS: Amphetamines Screen Urine Positive (Negative); Barbiturates Screen Urine Negative (Negative); Benzodiazepines Screen Urine Negative (Negative); Cocaine Screen Urine Negative (Negative); Opiate Screen Urine Negative (Negative); PCP Screen Urine Negative (Negative); THC Screen Urine Negative (Negative)
[2021-12-10] MEDS: potassium chloride ER 20 mEq Tablet 40 MEQ PO (17:08)
[2021-12-10] MEDS: LORazepam 2 mg Tablet PO (21:26)
--- NOTE | 2021-12-11 03:10 | PC.ADMIT ---
Admission Note:Patient is a 41-year-old male who presents to ED today with a complaint of depression, suicidal ideations, and hallucinations. Patient states he has felt suicidal for approximately a week now. He is having thoughts of wanting to kill himself by alcohol or drug overdose. Patient states he is seeing people and hearing voices come across the radio. Patient does admit to using anything and everything drug use alvarado. Last psychiatric hospitalization here was in January 2021. MD complaint: suicidal ideation and feels depressed The patient,Kristopher Oates,41 y/o, was given written information regarding hospital policies, unit procedures and contact persons. Vital Signs - 8 hr 12/10/21 19:39 12/10/21 19:45 12/10/21 19:59 Temperature 98.1 F 98.1 F 98.1 F Pulse Rate 79 79 99 Respiratory Rate 16 16 17 Blood Pressure 135/73 135/73 118/90 Pulse Oximetry 97 97 96 12/10/21 22:00 Temperature 98.1 F Pulse Rate 99 Respiratory Rate 17 Blood Pressure 118/90 Pulse Oximetry 96
[2021-12-11 06:00] VITALS: BP 92/62; PULSE 65; RESP 17; TEMP 36.8; O2SAT 96
[2021-12-11] MEDS: thiamine 100 mg Tablet PO (08:43)
[2021-12-11] MEDS: folic acid 1 mg Tablet PO (08:43)
[2021-12-11] MEDS: multivitamin therapeutic Tablet 1 TAB PO (08:43)
--- NOTE | 2021-12-11 10:50 | PC.OT ---
OT EVALUATION ATTEMPTED TWICE, PATIENT SLEEPING/ SNORING AT BOTH ATTEMPTS THIS A.M.
--- NOTE | 2021-12-11 11:08 | W.PM.NPUH&PS ---
Providers/Chief Complaint Admitting Physician: Lorenzo Obregon MD Chief Complaint: ETOH HPI NPU History of Present Illness Kristopher Oates is a 41 year old male admitted to our emergency department with the following report: Patient is a 41-year-old male who presents to ED today with a complaint of depression, suicidal ideations, and hallucinations.? Patient states he has felt suicidal for approximately a week now.? He is having thoughts of wanting to kill himself by alcohol or drug overdose.? Patient states he is seeing people and hearing voices come across the radio.? Patient does admit to using anything and everything drug use alvarado.? Last psychiatric hospitalization here was in January 2021.? MD complaint: suicidal ideation and feels depressed Onset (ago): day(s) Duration: constant Exacerbating factors: alcohol and drug use Context: recent alcohol abuse and recent drug abuse Associated psychiatric symptoms: depression, suicidal ideation, auditory hallucinations and visual hallucinations Associated symptoms: Reports auditory hallucinations, visual hallucinations, depression and suicidal ideation; Deny homicidal ideation If self harm: admits thoughts of self harm He was admitted to the neuropsychiatry unit for definitive treatment of these issues. He says that his kicked him out about 1 week ago. He said that [facility] He said he stayed clean for about 2 weeks after he left the program. He has argue about his drinking. He usually tries to hide it from her. He has been working at the [employer] and he says that the alcohol has not affected his work. He does feel that he has anxiety problems in general. He has not felt depressed consistently but does have spells of depression. He has been more depressed and suicidal for the last week since she kicked him out. They have been together for 8 years. They have a 6-year-old child. He has a 13-year-old child from a previous relationship. He has never been . He pays child support for the 13-year-old and expects that he will pay child support for the 6-year-old son. She has kicked him out before but he thinks this time she will not take him back. He has anxiety in general. He has social anxiety. He does not like to go out in public. He does not like to go to the store. He says that he is generally irritable. He agreed to start some Prozac. He does not have insurance and that would be the cheapest. It is also very effective. Urine drug screen was positive for methamphetamine. Below is his discharge summary from his admission here last year for context: History of Present Illness Kristopher Oates is a 40 year old male who presented to the emergency department with the following report: HPI Narrative: This patient is a 40-year-old male who presents to the emergency department with complaint of suicidal ideation.? Then patient corrects himself and states that he is here because he needs a place to stay because he wants to check himself into [place] [address] to have a kick of methamphetamine.? Patient states [place] [address] facility cannot put him in the their facility to 3 days from now.? Patient states that he was at the [facility] in [place] last night for evaluation was there for for several hours and then was discharged home.? Patient admits that he did use drugs again today prior to returning to the hospital.? Will do medical evaluation treat as needed. complaint: suicidal ideation and other Associated psychiatric symptoms: suicidal ideation Associated symptoms: Reports suicidal ideation; Deny depression. He was admitted to the neuropsychiatric unit for definitive treatment of those issues.? Kristopher presents today having presented to the emergency department endorsing lethality and feeling like if he does not maintain sobriety he will not survive.? He presents reporting no significant outpatient or inpatient treatment.? He reports that he smokes cigarettes, does not drink alcohol often, does not smoke marijuana with regularity he denies any other illicit drugs except for methamphetamine.? He reports that his life has gotten out of control.? He knows that he needs a long-term sober living facility and has gotten very depressed that his inability to discontinue his methamphetamine use to the point where he feels like he is going to and at times think about killing himself.? We discussed his connection with last and his need to get there Friday.? He work with the treatment team to determine what options are available to assist in this fashion.? He feels him anyway he is directable advised not using last night and is talking to his support system to see if anybody can help for the next few days.? We discussed the risk benefits and alternatives of infection: And a few other medications and he understood but felt that his primary focus should be on getting to a controlled environment and that once he got to the first part of withdrawal and craving he would be fine he just can never get there. Meds NPU Home Medications Medication Instructions Recorded Confirmed Last Taken Type Unable to Assess 12/10/21 12/10/21 Unknown History Allergies Allergy/AdvReac Type Severity Reaction Status Date / Time Penicillins Allergy Unknown Verified 08/08/21 14:23 PFS NPU PFSH: Medical History (Updated 12/11/21 @ 11:18 by Lorenzo Obregon MD) Adjustment disorder with mixed disturbance of emotions and conduct Drug abuse Methamphetamine abuse Surgical History No pertinent past surgical history Mental Status Exam MSE Comments: This is a 41-year-old appropriate weight male who is about his stated age and is in no acute distress. He was in bed him asleep and I had some difficulty waking him up. It took him at least 1 minute before he was able to get his brain working up after he woke up. psychomotor activity mildly decreased. Speech is at a regular rate and rhythm, normal volume, good articulation, not pressured. Alert, oriented X3 Attention and concentration appears to be average. Memory is intact Mood is depressed. Affect is moderately dysphoric. Thought process is logical and goal-directed. Thought content: Denies auditory and visual hallucinations. No delusions or paranoia are noted. He still is ambivalent about being alive but has no thoughts of doing anything while he is in the hospital. and no homicidal ideation. Fund of knowledge is average. Insight and judgment appear to be poor. Impulse control is Poor. Vitals/I&O/Wt Last Vital Signs Temp 98.3 F 12/11/21 06:00 Pulse 65 12/11/21 06:00 Resp 17 12/11/21 06:00 BP 92/62 12/11/21 06:00 Pulse Ox 96 12/11/21 06:00 Weight last 48 hrs Weight 77.111 kg Data NPU : 12/10/21 15:33 12/10/21 15:33 A&P Assessment and plan (1) Alcohol dependence: Status: Acute (2) Suicidal ideation: Status: Acute (3) Anxiety: Status: Acute (4) Methamphetamine abuse: Status: Acute Plan This is a 41-year-old male with multiple admissions for alcohol and methamphetamine abuse. His left him 1 week ago and he has been more depressed and having suicidal ideation since then. He describes significant anxiety and agreed to take some Prozac. Plan: 1. Continue current medication. Prozac 20 mg daily 2. Continue every 15 minute checks for safety. 3. Encourage individual, group and milieu therapies. 4. Encourage sober living treatment after discharge at the highest level of care to which he is willing to commit. 5. We will monitor for safety for himself in the community prior to discharge. Involuntary Hold Information 96 Hour Hold: 96 Hour Involuntary Admission: No Attestations NPU Medical Necessity Statement*: Inpatient hospitalization is medically necessary and the clinically appropriate intervention at this time. We will initiate medications and make changes as indicated. He will be in the hospital for over 2 midnights. Likely length of stay 4-6 days Coding Level of Care Code Acute Health Information Director for Rosaura Robison Diagnoses Alcohol dependence F10.20 Suicidal ideation R45.851 Anxiety F41.9 Methamphetamine abuse F15.10
--- NOTE | 2021-12-11 11:15 | NPU.GN ---
[facility] Group Topic:Positive Coping Skills General Mood of Group: Anderson did not attend group. He was sleeping.
[2021-12-11] MEDS: fluoxetine 20 mg Capsule PO (12:17)
[2021-12-11 14:00] VITALS: BP 120/72; PULSE 85; RESP 18; TEMP 37; O2SAT 98
[2021-12-11] MEDS: alum-mag-hydroxide-sime 30 mL UDC PO (20:36)
[2021-12-11 22:00] VITALS: BP 115/74; PULSE 69; RESP 20; TEMP 36.6; O2SAT 96
--- NOTE | 2021-12-12 03:11 | PC.NURSE ---
2035-Rec'd maalox for ingestion. 2135 It was effective.
[2021-12-12 06:00] VITALS: BP 109/71; PULSE 69; RESP 18; TEMP 36.4; O2SAT 97
[2021-12-12] MEDS: multivitamin therapeutic Tablet 1 TAB PO (09:12)
[2021-12-12] MEDS: folic acid 1 mg Tablet PO (09:12)
[2021-12-12] MEDS: fluoxetine 20 mg Capsule PO (09:12)
[2021-12-12] MEDS: thiamine 100 mg Tablet PO (09:12)
--- NOTE | 2021-12-12 11:35 | NPU.GN ---
[facility] Topic:Positive Thoughts/ Negative Thoughts General Mood of Group: Kristopher did not attend group .
[2021-12-12 14:00] VITALS: BP 98/64; PULSE 85; RESP 17; TEMP 36.7; O2SAT 97
--- NOTE | 2021-12-12 14:14 | P.NPUPN_ITS ---
Subjective NPU Subjective: He says that he continues to hear voices but they are getting better. He did not require any as needed Ativan yesterday for alcohol withdrawal. Mental Status Exam MSE Comments: This is a 41-year-old appropriate weight male who is about his stated age and is in no acute distress. He was in bed him asleep and I had some difficulty waking him up. It took him at least 1 minute before he was able to get his brain working up after he woke up. psychomotor activity mildly decreased. Speech is at a regular rate and rhythm, normal volume, good articulation, not pressured. Alert, oriented X3 Attention and concentration appears to be average. Memory is intact Mood is depressed. Affect is moderately dysphoric. Thought process is logical and goal-directed. Thought content: He has been having auditory hallucinations but no visual hallucinations. No delusions or paranoia are noted. He still is ambivalent about being alive but has no thoughts of doing anything while he is in the hospital. and no homicidal ideation. Fund of knowledge is average. Insight and judgment appear to be poor. Impulse control is Poor. Cognition: Patient Appearance: Appropriate Level of Consciousness: Awake, Alert, Appropriate and Follows Commands Patient Cognition Impaired: No Ability to Follow Directions: Excellent Patient Orientation (long list): Person, Place, Name, Age and Birthday Comprehension Ability: No Impairment Hallucination Type: None Delusion Description: Not Present Thought Process: Appropriate Affect: Affect Description: Appropriate and Calm Depressive Symptoms: Hopelessness, Recurrent Thoughts of or Suicide and Unhappiness Behavior: Patient Behavior: Appropriate and Cooperative Speech Pattern: Appropriate and Clear Vitals/I&O/Wt Last Vital Signs Temp 98.0 F 12/12/21 14:00 Pulse 85 12/12/21 14:00 Resp 17 12/12/21 14:00 BP 98/64 12/12/21 14:00 Pulse Ox 97 12/12/21 14:00 Weight last 48 hrs Weight 77.111 kg Data NPU : 12/10/21 15:33 12/10/21 15:33 A&P Assessment and plan (1) Alcohol dependence: Status: Acute (2) Suicidal ideation: Status: Acute (3) Anxiety: Status: Acute (4) Methamphetamine abuse: Status: Acute Plan This is a 41-year-old male with multiple admissions for alcohol and methamphetamine abuse. His left him 1 week ago and he has been more depressed and having suicidal ideation since then. He describes significant anxiety and agreed to take some Prozac. Plan: 1. Continue current medication. Prozac 20 mg daily 2. Continue every 15 minute checks for safety. 3. Encourage individual, group and milieu therapies. 4. Encourage sober living treatment after discharge at the highest level of care to which he is willing to commit. 5. We will monitor for safety for himself in the community prior to discharge. Involuntary Hold Information 96 Hour Hold: 96 Hour Involuntary Admission: No Attestations NPU Medical Necessity Statement*: Inpatient hospitalization is medically necessary and the clinically appropriate intervention at this time. We will initiate medications and make changes as indicated. Coding Level of Care Code Acute Wire Straightening Machine Operator for Ros[facility] Robison Diagnoses Alcohol dependence F10.20 Suicidal ideation R45.851 Anxiety F41.9 Methamphetamine abuse F15.10
[2021-12-12 21:35] VITALS: BP 82/53; PULSE 81; RESP 18; TEMP 36.7; O2SAT 96
[2021-12-13 06:00] VITALS: BP 105/69; PULSE 72; RESP 16; TEMP 36.4; O2SAT 98
[2021-12-13] MEDS: fluoxetine 20 mg Capsule PO (09:10)
[2021-12-13] MEDS: multivitamin therapeutic Tablet 1 TAB PO (09:10)
[2021-12-13] MEDS: folic acid 1 mg Tablet PO (09:10)
[2021-12-13] MEDS: thiamine 100 mg Tablet PO (09:11)
[2021-12-13] MEDS: nicotine 2 mg Gum BUCCAL (10:12)
--- NOTE | 2021-12-13 12:06 | NPU.GN ---
[facility] Group Topic:Whine Barrel Activity General Mood of Group: Kristopher did not attend group today.
[2021-12-13 14:00] VITALS: BP 95/59; PULSE 81; RESP 17; TEMP 36.4; O2SAT 99
--- NOTE | 2021-12-13 15:40 | W.PM.NPUPNS ---
Subjective NPU Subjective: Patient identified significant addiction issues over the past 25 years with recent methamphetamine and alcohol difficulties. He reports that he is working with the treatment team to find an alternative to his current behaviors and reports he is open to follow-up but has had significant issues with follow-through. He reviewed the Prozac and thiamine that he is currently on and about the plan to work with the treatment team for possible more intensive programing and discharge options. Mental Status Exam MSE Comments: This is a well-nourished well-developed white male in hospital scrubs with limited grooming and eye contact. No abnormal movements except for mild psychomotor retardation. Cooperative with exam in no acute distress. Speech was decreased rate normal volume. Mood described as doing better than when he presented, affect more euthymic. Thought process organized. Thought content: Patient is denied suicidal or homicidal ideation, there are no delusions reported or noted, he denied any auditory visualizations. Attention concentration improving and memory was more reliable but none were formally tested. He is alert and oriented x3. Insight and judgment appear limited impulse control is limited. Vitals/I&O/Wt Last Vital Signs Temp 97.5 F L 12/13/21 14:00 Pulse 81 12/13/21 14:00 Resp 17 12/13/21 14:00 BP 95/59 12/13/21 14:00 Pulse Ox 99 12/13/21 14:00 Data NPU : 12/10/21 15:33 12/10/21 15:33 A&P Assessment and plan (1) Methamphetamine abuse: Status: Acute (2) Alcohol dependence: Status: Acute (3) Suicidal ideation: Status: Acute (4) Hallucinations: Status: Acute (5) Anxiety: Status: Acute Plan This is a 41-year-old male with multiple admissions for alcohol and methamphetamine abuse.? His left him 1 week ago and he has been more depressed and having suicidal ideation since then.? He reports residual symptoms and openness to medication trial. Plan: 1.? Continue current medication.? Continue Prozac 20 mg daily 2.? Continue every 15 minute checks for safety. 3.? Encourage individual, group and milieu therapies. 4.? Encourage sober living treatment after discharge at the highest level of care to which he is willing to commit. 5.? We will monitor for safety for himself in the community prior to discharge. Involuntary Hold Information 96 Hour Hold: 96 Hour Involuntary Admission: No Attestations NPU Medical Necessity Statement*: Inpatient hospitalization is medically necessary and the clinically appropriate intervention at this time.? We will initiate medications and make changes as indicated. Likely stay 2 to 4 days. Coding Level of Care Code Acute Supervisor [place] for [facility] Fwd Diagnoses Methamphetamine abuse F15.10 Alcohol dependence F10.20 Suicidal ideation R45.851 Hallucinations R44.3 Anxiety F41.9
[2021-12-13 20:27] VITALS: BP 94/58; PULSE 77; RESP 12; O2SAT 97
[2021-12-14 06:00] VITALS: BP 109/90; PULSE 75; RESP 17; TEMP 36.4; O2SAT 99
[2021-12-14] MEDS: thiamine 100 mg Tablet PO (09:36)
[2021-12-14] MEDS: multivitamin therapeutic Tablet 1 TAB PO (09:36)
[2021-12-14] MEDS: fluoxetine 20 mg Capsule PO (09:36)
[2021-12-14] MEDS: folic acid 1 mg Tablet PO (09:36)
[2021-12-14] MEDS: nicotine 2 mg Gum BUCCAL (10:55)
[2021-12-14 14:00] VITALS: BP 91/63; PULSE 66; RESP 17; TEMP 36.6; O2SAT 97
--- NOTE | 2021-12-14 17:18 | P.NPUPN_ITS ---
Subjective NPU Subjective: Patient presents today starting to show clear signs that the fog and distorted thinking from his intoxicated state and withdraw are subsiding. We were able to discussed that we did locate a place for him to go after discharge but he will need to be there by noon on the next business day. That means that we will discharge him in the morning on Friday to get him directly to that program. He reports that he starting to feel more optimistic about things improving overall. He reports he feels the medications have been helpful but agrees with this entry writer that part of it is distance from the use of the drugs. Mental Status Exam MSE Comments: This is a well-nourished well-developed white male in hospital scrubs with limited grooming and eye contact.? No abnormal movements except for mild psychomotor retardation.? Cooperative with exam in no acute distress.? Speech was decreased rate normal volume.? Mood described as feeling better, affect euthymic.? Thought process organized.? Thought content: Patient denied suicidal or homicidal ideation, there are no delusions reported or noted, he de nied any auditory visualizations.? Attention concentration improving and memory was more reliable but none were formally tested.? He is alert and oriented x3.? Insight and judgment appear limited, impulse control is limited. Vitals/I&O/Wt Last Vital Signs Temp 97.9 F 12/14/21 14:00 Pulse 66 12/14/21 14:00 Resp 17 12/14/21 14:00 BP 91/63 12/14/21 14:00 Pulse Ox 97 12/14/21 14:00 Data NPU : 12/10/21 15:33 12/10/21 15:33 A&P Assessment and plan (1) Methamphetamine abuse: Status: Acute (2) Alcohol dependence: Status: Acute (3) Suicidal ideation: Status: Acute (4) Hallucinations: Status: Acute (5) Alcohol abuse: Status: Acute (6) Hypokalemia: Status: Acute (7) Anxiety: Status: Acute Plan This is a 41-year-old male with multiple admissions for alcohol and methamphetamine abuse.? His left him 1 week ago and he has been more depressed and having suicidal ideation since then.? He reports residual symptoms and openness to medication trial. Plan: 1.? Continue current medication.? Continue Prozac 20 mg daily 2.? Continue every 15 minute checks for safety. 3.? Encourage individual, group and milieu therapies. 4.? Encourage sober living treatment after discharge at the highest level of care to which he is willing to commit. 5.? Plan for [facility] Friday. Involuntary Hold Information 96 Hour Hold: 96 Hour Involuntary Admission: No Attestations NPU Medical Necessity Statement*: Inpatient hospitalization is medically necessary and the clinically appropriate intervention at this time.? We will initiate medications and make changes as indicated.? Likely stay 2 to 4 days. 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
[2021-12-14] MEDS: prazosin 1 mg Capsule PO (20:26)
[2021-12-14] MEDS: trazodone 50 mg Tablet PO (20:26)
[2021-12-14 20:50] VITALS: BP 106/70; PULSE 56; RESP 17; TEMP 36.6; O2SAT 93
--- NOTE | 2021-12-14 23:52 | PC.NURSE ---
2015 On assessment the patient states that he has not had any medication for his night terrors and sleep. He gets these from [facility] in [place] along with a pill daily for his etoh addiction and a once a month shot of Vivitrol for the same. After speaking with Dr. Barron, tomorrow the staff need to call [facility] and find out his actual meds. He will be started on Prazosin 1 mg po at [facility] and Trazadone 50mg po at [facility] tonight. Will re-evaluate tomorrow after obtaining his medications with [facility] and/or assessing if the two medications boby helped.
[2021-12-15 06:00] VITALS: BP 90/57; PULSE 55; RESP 16; TEMP 36.9; O2SAT 99
[2021-12-15] MEDS: multivitamin therapeutic Tablet 1 TAB PO (08:24)
[2021-12-15] MEDS: folic acid 1 mg Tablet PO (08:24)
[2021-12-15] MEDS: fluoxetine 20 mg Capsule PO (08:24)
[2021-12-15] MEDS: thiamine 100 mg Tablet PO (08:24)
--- NOTE | 2021-12-15 12:55 | W.PM.NPUPNS ---
Subjective NPU Subjective: Patient presents today continuing slow and steady improvement in his cognition and overall presentation. He continues to be committed to his recovery and plan to [facility]. We agreed we would put in his discharge tomorrow so that he can leave fairly early on Friday morning to get to [place] before noon. Otherwise he denied any new or pressing issues and reports that the medication continues to be helpful. Mental Status Exam MSE Comments: This is a well-nourished well-developed white male in hospital scrubs with limited grooming and eye contact.? No abnormal movements except for mild psychomotor retardation.? Cooperative with exam in no acute distress.? Speech was more normal rate and volume.? Mood described as better, affect euthymic.? Thought process organized.? Thought content: Patient denied suicidal or homicidal ideation, there are no delusions reported or noted, he denied any auditory visualizations.? Attention concentration improving and memory was more reliable but none were formally tested.? He is alert and oriented x3.? Insight and judgment appear limited, impulse control is limited. Vitals/I&O/Wt Last Vital Signs Temp 98.5 F 12/15/21 06:00 Pulse 55 L 12/15/21 06:00 Resp 16 12/15/21 06:00 BP 90/57 12/15/21 06:00 Pulse Ox 99 12/15/21 06:00 Data NPU : 12/10/21 15:33 12/10/21 15:33 A&P Assessment and plan (1) Methamphetamine abuse: Status: Acute (2) Alcohol dependence: Status: Acute (3) Suicidal ideation: Status: Acute (4) Hallucinations: Status: Acute (5) Alcohol abuse: Status: Acute (6) Hypokalemia: Status: Acute (7) Anxiety: Status: Acute Plan This is a 41-year-old male with multiple admissions for alcohol and methamphetamine abuse.? His left him 1 week ago and he has been more depressed and having suicidal ideation since then.? He reports residual symptoms and openness to medication trial. Plan: 1.? Continue current medication.? Continue Prozac 20 mg daily 2.? Continue every 15 minute checks for safety. 3.? Encourage individual, group and milieu therapies. 4.? Encourage sober living treatment after discharge at the highest level of care to which he is willing to commit. 5.? Plan for [facility]. Involuntary Hold Information 96 Hour Hold: 96 Hour Involuntary Admission: No Attestations NPU Medical Necessity Statement*: Inpatient hospitalization is medically necessary and the clinically appropriate intervention at this time.? We will initiate medications and make changes as indicated.? Likely stay 2 to 4 days. Coding Level of Care Code Acute Curriculum And Assessment Director for g Fwd Diagnoses Methamphetamine abuse F15.10 Alcohol dependence F10.20 Suicidal ideation R45.851 Hallucinations R44.3 Alcohol abuse F10.10 Hypokalemia E87.6 Anxiety F41.9
[2021-12-15 14:00] VITALS: BP 93/68; PULSE 66; RESP 18; TEMP 36.9; O2SAT 97
[2021-12-15] MEDS: nicotine 2 mg Gum BUCCAL (19:01)
[2021-12-15] MEDS: trazodone 50 mg Tablet PO (20:28)
[2021-12-15] MEDS: prazosin 1 mg Capsule PO (20:28)
--- NOTE | 2021-12-15 21:33 | PC.NURSE ---
Patient requested medication for sleep, trazadone 50mg was given.
[2021-12-15 22:00] VITALS: BP 92/62; PULSE 75; RESP 18; TEMP 37.1; O2SAT 95
[2021-12-16 06:00] VITALS: BP 96/64; PULSE 61; RESP 16; TEMP 36.7; O2SAT 98; BMI 26.1
[2021-12-16] MEDS: folic acid 1 mg Tablet PO (09:05)
[2021-12-16] MEDS: multivitamin therapeutic Tablet 1 TAB PO (09:05)
[2021-12-16] MEDS: fluoxetine 20 mg Capsule PO (09:05)
[2021-12-16] MEDS: thiamine 100 mg Tablet PO (09:05)
--- NOTE | 2021-12-16 09:20 | P.NPUPN_ITS ---
Subjective NPU Subjective: Patient presents today reporting that he is prepared to be discharged tomorrow but was medically cleared he actually has a vehicle that he could and would likely use to get to his appointment by noon if that is possible which he is worried it will be. He was talking about different things he needs to do prior to going to [facility] as he is getting it clarity of thought he is thinking about the responsibilities that he has. We agreed we would work with the treatment team early in the morning to figure out what exactly can need to be done and how that will possibly impact the situation. Mental Status Exam MSE Comments: This is a well-nourished well-developed white male in hospital scrubs with improving grooming and eye contact.? No abnormal movements.? Cooperative with exam in no acute distress.? Speech was more normal rate and volume.? Mood described as better, affect euthymic.? Thought process organized.? Thought content: Patient denied suicidal or homicidal ideation, there are no de lusions reported or noted, he denied any auditory visualizations.? Attention concentration improving and memory was more reliable but none were formally tested.? He is alert and oriented x3.? Insight and judgment appear limited, impulse control is limited. Vitals/I&O/Wt Last Vital Signs Temp 98.0 F 12/16/21 06:00 Pulse 61 12/16/21 06:00 Resp 16 12/16/21 06:00 BP 96/64 12/16/21 06:00 Pulse Ox 98 12/16/21 06:00 Weight last 48 hrs Weight 82.463 kg Data NPU : 12/10/21 15:33 12/10/21 15:33 A&P Assessment and plan (1) Methamphetamine abuse: Status: Acute (2) Alcohol dependence: Status: Acute (3) Suicidal ideation: Status: Acute (4) Hallucinations: Status: Acute (5) Alcohol abuse: Status: Acute (6) Hypokalemia: Status: Acute (7) Anxiety: Status: Acute Plan This is a 41-year-old male with multiple admissions for alcohol and methamphetamine abuse.? His left him 1 week ago and he has been more depressed and having suicidal ideation since then.? He reports residual symptoms and openness to medication trial. Plan: 1.? Continue current medication.? Continue Prozac 20 mg daily 2.? Continue every 15 minute checks for safety. 3.? Encourage individual, group and milieu therapies. 4.? Encourage sober living treatment after discharge at the highest level of care to which he is willing to commit. 5.? Plan for [facility] tomorrow morning. Involuntary Hold Information 96 Hour Hold: 96 Hour Involuntary Admission: No Attestations NPU Medical Necessity Statement*: Inpatient hospitalization is medically necessary and the clinically appropriate intervention at this time.? We will initiate medications and make changes as indicated.? Plan for discharge tomorrow. Coding Level of Care Code Acute Creative Arts Therapist for [facility] Fwd Diagnoses Methamphetamine abuse F15.10 Alcohol dependence F10.20 Suicidal ideation R45.851 Hallucinations R44.3 Alcohol abuse F10.10 Hypokalemia E87.6 Anxiety F41.9
[2021-12-16] MEDS: nicotine 2 mg Gum BUCCAL ×3 (11:52→20:06)
--- NOTE | 2021-12-16 12:10 | PC.NURSE ---
Denies pain, or HI/SI. Denies anxiety. Pt asleep when approached to assess. Pleasant and calm.
[2021-12-16 14:00] VITALS: BP 100/71; PULSE 60; RESP 16; TEMP 36.8; O2SAT 100
[2021-12-16] MEDS: trazodone 50 mg Tablet PO (20:05)
[2021-12-16] MEDS: prazosin 1 mg Capsule PO (20:05)
[2021-12-16 20:24] VITALS: BP 107/70; PULSE 60; RESP 17; TEMP 36.7; O2SAT 99
[2021-12-17 06:00] VITALS: BP 99/72; PULSE 78; RESP 16; TEMP 37; O2SAT 94
[2021-12-17] MEDS: thiamine 100 mg Tablet PO (08:37)
[2021-12-17] MEDS: fluoxetine 20 mg Capsule PO (08:37)
[2021-12-17] MEDS: folic acid 1 mg Tablet PO (08:37)
[2021-12-17] MEDS: multivitamin therapeutic Tablet 1 TAB PO (08:37)
--- NOTE | 2021-12-17 10:29 | W.PM.NPUDCS ---
Diagnoses at Discharge Discharge Diagnosis (1) Methamphetamine abuse: Status: Acute (2) Alcohol dependence: Status: Acute (3) Suicidal ideation: Status: Resolved (4) Hallucinations: Status: Acute (5) Alcohol abuse: Status: Deleted (6) Hypokalemia: Status: Acute (7) Anxiety: Status: Acute Reason for Visit Reason for Visit: ETOH Brief History: History of Present Illness Kristopher Oates is a 41 year old male admitted to our emergency department with the following report: Patient is a 41-year-old male who presents to ED today with a complaint of depression, suicidal ideations, and hallucinations.? Patient states he has felt suicidal for approximately a week now.? He is having thoughts of wanting to kill himself by alcohol or drug overdose.? Patient states he is seeing people and hearing voices come across the radio.? Patient does admit to using anything and everything drug use alvarado.? Last psychiatric hospitalization here was in January 2021.? MD complaint: suicidal ideation and feels depressed Onset (ago): day(s) Duration: constant Exacerbating factors: alcohol and drug use Context: recent alcohol abuse and recent drug abuse Associated psychiatric symptoms: depression, suicidal ideation, auditory hallucinations and visual hallucinations Associated symptoms: Reports auditory hallucinations, visual hallucinations, depression and suicidal ideation; Deny homicidal ideation If self harm: admits thoughts of self harm He was admitted to the neuropsychiatry unit for definitive treatment of these issues.? He says that his kicked him out about 1 week ago.? He said that he did successfully complete the program at [address] year.? He said he stayed clean for about 2 weeks after he left the program.? He has argue about his drinking.? He usually tries to hide it from her.? He has been working at the [employer] and he says that the alcohol has not affected his work.? He does feel that he has anxiety problems in general.? He has not felt depressed consistently but does have spells of depression.? He has been more depressed and suicidal for the last week since she kicked him out.? They have been together for 8 years.? They have a 6-year-old child.? He has a 13-year-old child from a previous relationship.? He has never been .? He pays child support for the 13-year-old and expects that he will pay child support for the 6-year-old son.? She has kicked him out before but he thinks this time she will not take him back.? He has anxiety in general.? He has social anxiety.? He does not like to go out in public.? He does not like to go to the store.? He says that he is generally irritable.? He agreed to start some Prozac.? He does not have insurance and that would be the cheapest.? It is also very effective.? Urine drug screen was positive for methamphetamine. Below is his discharge summary from his admission here last year for context: History of Present Illness Kristopher Oates is a 40 year old male who presented to the emergency department with the following report: HPI Narrative: This patient is a 40-year-old male who presents to the emergency department with complaint of suicidal ideation.? Then patient corrects himself and states that he is here because he needs a place to stay because he wants to check himself into [place] [address] to have a kick of methamphetamine.? Patient states [place] [address] facility cannot put him in the their facility to 3 days from now.? Patient states that he was at the [facility] in [place] last night for evaluation was there for for several hours and then was discharged home.? Patient admits that he did use drugs again today prior to returning to the hospital.? Will do medical evaluation treat as needed. complaint: suicidal ideation and other Associated psychiatric symptoms: suicidal ideation Associated symptoms: Reports suicidal ideation; Deny depression. He was admitted to the neuropsychiatric unit for definitive treatment of those issues.? Kristopher presents today having presented to the emergency department endorsing lethality and feeling like if he does not maintain sobriety he will not survive.? He presents reporting no significant outpatient or inpatient treatment.? He reports that he smokes cigarettes, does not drink alcohol often, does not smoke marijuana with regularity he denies any other illicit drugs except for methamphetamine.? He reports that his life has gotten out of control.? He knows that he needs a long-term sober living facility and has gotten very depressed that his inability to discontinue his methamphetamine use to the point where he feels like he is going to and at times think about killing himself.? We discussed his connection with [facility] and his need to get there Friday.? He work with the treatment team to determine what options are available to assist in this fashion.? He feels him anyway he is directable advised not using last night and is talking to his support system to see if anybody can help for the next few days.? We discussed the risk benefits and alternatives of infection: And a few other medications and he understood but felt that his primary focus should be on getting to a controlled environment and that once he got to the first part of withdrawal and craving he would be fine he just can never get there. Hospital Course Hospital Course He slowly acclimated to the individual, group and milieu therapies provided. He was started on Prozac for his anxiety and depression as well as prazosin for nightmares. He had modest improvement and was able to contract for safety outside of the hospital prior to discharge. During the hospitalization, patient had routine laboratory studies which were within normal limits except for few outliers. Additionally there was a general medical evaluation which was also within normal limits and revealed no new acute processes. Discharge Summary: At the time of discharge, he denied psychosis or lethality. Mood and anxiety were well managed. Patient endorsed a plan to avoid all drugs of abuse and follow-up with the aftercare recommendations of the treatment team. Patient was evaluated and deemed to be absent credible lethality, and had achieved the maximum benefit from an inpatient hospitalization, so was discharged. Involuntary Hold Information 96 Hour Hold: 96 Hour Involuntary Admission: No Mental Status Exam MSE Comments: This is a well-nourished well-developed white male in hospital scrubs with improving grooming and eye contact.? No abnormal movements.? Cooperative with exam in no acute distress.? Speech was more normal rate and volume.? Mood described as better, affect euthymic.? Thought process organized.? Thought content: Patient denied suicidal or homicidal ideation, there are no delusions reported or noted, he denied any auditory visualizations.? Attention concentration improving and memory was more reliable but none were formally tested.? He is alert and oriented x3.? Insight and judgment appear limited, but improving impulse control is limited. Discharge Data Studies Completed and Pending: Laboratory Results WBC 12.2 10^3/uL (4.0 -10.0) H 12/10/21 15:33 RBC 5.35 10^6/uL (4.1 -5.3) H 12/10/21 15:33 Hgb 17.0 g/dL (11.7-1 6.6) H 12/10/21 15:33 Hct 50.2 % (42.0-52.0 ) 12/10/21 15: MCV 93.8 fl (80-94) 12/10/21 15: MCH 31.8 pg (28.0-34. 0) 12/10/21 15: MCHC 33.9 g/dL (30.0-3 6.0) 12/10/21 15: RDW 13.6 % (12.1-15.1 ) 12/10/21 15: Plt Count 352 10^3/cmm (130 -400) 12/10/21 15: MPV 9.9 fL (7.4-10.4) 12/10/21 15: Neut % (Auto) 64.0 % 12/10/21 15: Lymph % (Auto) 25.3 % 12/10/21: Cochran % (Auto) 6.5 % 12/10/21: Eos % (Auto) 3.5 % 12/10/21 15:33 Baso % (Auto) 0.5 % 12/10/21 15: Neut # (Auto) 7.80 10^3/uL (1.8 -7.7) H 12/10/21 15: Lymph # (Auto) 3.1 10^3/uL (0.8- 4.8) 12/10/21 15: Cochran # (Auto) 0.8 10^3/uL (0.2- 0.9) 12/10/21: Eos # (Auto) 0.4 10^3/uL (0.0- 0.8) 12/10/21 15: Baso # (Auto) 0.1 10^3/uL (0.0- 0.1) 12/10/21: Nucleated RBC % (a uto) 0 % 12/10/21: Nucleated RBCs # 0.0 /100WBC 12/10/21 15: Sodium 136 mmol/L (136-1 45) 12/10/21 15: Potassium 2.9 mmol/L (3.5-5 .1) L 12/10/21 15: Chloride 94 mmol/L (98-107 ) L 12/10/21 15:33 Carbon Dioxide 27 mmol/L (22-29) 12/10/21 15:33 Anion Gap 17.9 (5-19) 12/10/21 15:33 BUN 13 mg/dL (6-20) 12/10/21 15:33 Creatinine 0.8 mg/dL (0.7-1. 2) 12/10/21 15:33 GFR Calculation 107.1 mL/min (90- 130) 12/10/21 15:33 Glucose 127 mg/dL (65-115 ) H 12/10/21 15:33 Calculated Osmolal ity 284 mOsm/kg (285- 295) L 12/10/21 15:33 Calcium 9.6 mg/dL (8.5-10 .5) 12/10/21 15:33 Total Bilirubin 0.4 mg/dL (0.15-1 .2) 12/10/21 15:33 AST 16 U/L (0-40) 12/10/21 15:33 ALT 25 U/L (0-41) 12/10/21 15:33 Alkaline Phosphata se 125 IU/L (40-130) 12/10/21 15:33 Total Protein 7.7 g/dL (6.6-8.7 ) 12/10/21 15:33 Albumin 4.6 g/dL (3.5-5.2 ) 12/10/21 15:33 Globulin 3.1 g/dL (1.3-4.6 ) 12/10/21 15:33 Salicylates < 0.3 mg/dL (3-10 ) L 12/10/21 15:33 Urine Opiates Scre en Negative ng/mL (N egative) 12/10/21 16:31 Acetaminophen < 5.0 ug/mL (10-3 0) L 12/10/21 15:33 Ur Barbiturates Sc reen Negative ng/mL (N egative) 12/10/21 16:31 Ur Phencyclidine S crn Negative ng/mL (N egative) 12/10/21 16:31 Ur Amphetamines Sc reen Positive ng/mL (N egative) H 12/10/21 16:31 U Benzodiazepines Scrn Negative ng/mL (N egative) 12/10/21 16:31 Urine Cocaine Scre en Negative ng/mL (N egative) 12/10/21 16:31 U Marijuana (THC) Screen Negative ng/mL (N egative) 12/10/21 16:31 Ethyl Alcohol 182 mg/dL (0-10) H 12/10/21 15:33 Vitals: Last Vital Signs Temp 98.6 F 12/17/21 06:00 Pulse 78 12/17/21 06:00 Resp 16 12/17/21 06:00 BP 99/72 12/17/21 06:00 Pulse Ox 94 12/17/21 06:00 Discharge Plan Discharge Patient Disposition: Home Condition: Stable Prescriptions: New trazodone 50 mg Tablet 50 mg PO BEDTIME PRN (Reason: Sleep) 30 Days Qty: 30 1RF prazosin 1 mg Capsule 1 mg PO BEDTIME 30 Days Qty: 30 1RF fluoxetine 20 mg Capsule 20 mg PO DAILY 30 Days Qty: 30 1RF Vitamin B-1 (mononitrate) 100 mg Tablet 100 mg PO DAILY 30 Days Qty: 30 1RF Discharge Orders: Discharge Order (Routine); Ordered 12/17/21 Ordered By: Shaw Barron Referrals: [facility] [Other] (BETWEEN 8 AM TO NOON, please report to [facility] in [place] tomorrow, 12/17/21, as discussed. They will help coordinate housing resources for you.) [facility] [Outside] - 01/08/22 1:40 pm (Psychiatry appointment with Dr. Kera Vazquez) Discharge Diet: Regular Discharge Activity: Resume usual activity Patient Instructions: Opioid Safety Discharge Attestations NPU Time Spent in Discharge Care*: less than 30 min Specific Discharge Activities: Specific discharge activities: educating patient, discussing with mental health case manager/social workers/dc planners, documenting/other paperwork and evaluating patient/reviewing data Coding Level of Care Code Acute Chg FW DC note Diagnoses Methamphetamine abuse F15.10 Alcohol dependence F10.20 Suicidal ideation R45.851 Hallucinations R44.3 Alcohol abuse F10.10 Hypokalemia E87.6 Anxiety F41.9
[2021-12-17 10:49] VITALS: BP 99/72; PULSE 78; RESP 16; TEMP 37; O2SAT 94
== END 2021-12-17 11:22 | disposition home or self-care (01) | DRG 882 ==
LOC: ER 17:07 → NP 18:16
PROVIDERS: Physician Assistant; Admitting Provider Psychiatry & Neurology Psychiatry; Emergency Provider Physician Assistant; Visit Provider Psychiatry & Neurology Psychiatry
DX: F43.25 Adjustment disorder with mixed disturbance of emotions and conduct (principal); R45.851 Suicidal ideations; F41.8 Other specified anxiety disorders; F10.229 Alcohol dependence with intoxication, unspecified; Y90.6 Blood alcohol level of 120-199 mg/100 ml; F15.10 Other stimulant abuse, uncomplicated; E87.6 Hypokalemia
CPT/HCPCS: 80053; 80306; 80307; 85025; 97150; 97165; 99285

== ENCOUNTER 2025-04-27 11:00 | Observation (INO) | payer SELFPAY ==
[2025-04-27] VITALS (16 sets, daily range): BP systolic 94–122; BP diastolic 59–79; PULSE 57–85; RESP 16–19; TEMP 36.2–36.6; O2SAT 91–100
--- NOTE | 2025-04-27 11:03 | ECG_ITS ---
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 Measurements Intervals [place] Rate: 61 P: 73 SC: 183 QRS: 72 QRSD: 90 T: 72 QT: 468 QTc: 472 Interpretive Statements SINUS RHYTHM PROLONGED QT INTERVAL Compared to ECG 06/07/2021 00:58:28 Prolonged QT interval now present Electronically Signed On 04-27-2025 22:49:31 CDT by Annmarie Pavon M.D. [email or web address]
--- OUTSIDE RECORDS SUMMARY | 2025-04-27 11:05 | XMS_ITS | Clinical Summary ---
Author Organization [facility] Address [address] [place] [address] Phone Care Team Providers Care Support Manager Name Role Phone Unavailable Primary Care Provider Unavailabl e Allergies Active Allergy Reactions Criticality Noted Date Comments Penicillins Unknown 03/30/2012 Medications omeprazole (PriLOSEC) 40 mg Capsule, Delayed Release(E.C.) Take 1 Capsule (40 mg) by mouth daily. 30 Capsule 0 Active chlordiazePOXID E (LIBRIUM) 25 mg capsuleIndicati ons:Alcohol abuse Take 1 Capsule (25 mg) by mouth 3 times daily as needed for Alcohol / Drug Withdrawal Symptoms. 21 Capsule 0 Active Active Problems No known active problems Immunizations Immunization Administration Dates Next Due (ADACEL/BOOSTRIX)(10 YR UP) TDAP VACCINE, 0.5ML, IM 03/30/2012 (TDVAX)(7 YRS UP) TETANUS AN D DIPHTHERIA TOXOIDS, ADSORBED (2 LF OF TETANUS TOXOID AND 2 LF OF DIPHTHERIA TOXOID), 0.5ML (PF), IM 12/21/2004,04/11/2004 Social History Tobacco Use Types Packs/Day Years Used Date Smoking Tobacco: Every Day Cigarettes Smokeless Tobacco: Never Alcohol Use Standard Drinks/Week Comments Yes 0 (1 standard drink = 0.6 oz pur e alcohol) 5th of whiskey daily Sex and Gender Information Value Date Recorded Sex Assigned at Not on file 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 Gender Identity Not on file Sexual Orientation Not on file Last Filed Vital Signs Vital Sign Reading Time Taken Comments Blood Pressure 108/69 01/21/2021 11:56 PM CDT Pulse 84 01/21/2021 11:56 PM CDT Temperature 37 C (98.6 F) 01/21/2021 6:46 PM CDT Respiratory Rate 19 01/21/2021 11:56 PM CDT Oxygen Saturation 95% 01/21/2021 11:56 PM CDT Inhaled Oxygen Concentration - - Weight 72 kg (158 lb 11.7 oz) 01/21/2021 6:46 PM CDT Height 167.6 cm (5' 6 ) 01/21/2021 6:46 PM CDT Body Mass Index 25.62 01/21/2021 6:46 PM CDT Plan of Treatment Health Maintenance Due Date Last Done Comments HPV VACCINES (1 - Male 3-dos e series) 1996 HEPATITIS B VACCINES (1 of 3 - 19+ 3-dose series) 2000 DTAP/TDAP/TD VACCINES (2 - T d or Tdap) 03/30/2022 03/30/2012, 12/21/2004, 04/11/2004 INFLUENZA VACCINE (#1) [address] [place] [address] RX [employer]ANS (INTERNAL) [facility] Internal Plans * Guarantor: [id number] Account Type Relation to Patient Date of Phone Billing Address Workers [employer] Employ[employer] [address] [place] [address]
--- OUTSIDE RECORDS SUMMARY | 2025-04-27 11:05 | XMS_ITS | Encounter Summary ---
Author Organization [facility] Address [address] [place] [address] Care Team Providers Care Assistant Auto Center Manager Name Role Phone Unavailable Primary Care Provider Unavailabl e Encounter Details Date Type Department Care Team (Latest Contact Info) Description 06/05/2005 Outpatient Historical [facility] Medicine [place] [address] [facility] [address] [place] [address] Gilda Duke MD NO ADDRESS ON FILE Toxic effect venom (Primary Dx) Social History Tobacco Use Types Packs/Day Years Used Date Smoking Tobacco: Never Assessed Sex and Gender Information Value Date Recorded Sex Assigned at Not on file 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
--- OUTSIDE RECORDS SUMMARY | 2025-04-27 11:05 | XMS_ITS | Clinical Summary ---
Author Organization [facility] Address [address] [place] [address] Phone Care Team Providers Care Airframe Technician Name Role Phone Vandana Pagan DO Primary Care Provider [phone] Allergies Active Allergy Reactions Criticality Noted Date Comments Penicillins Unknown 12/04/2015 Penicillins Anaphylaxis High 12/11/2015 Medications No known medications Active Problems Problem Noted Date Diagnosed Date Right inguinal hernia 12/05/2015 Tobacco use 12/05/2015 Encounters Date Type Department Care Team Description 03/29/2025 External Device Data STL ABSTRACTION Provider, Abstract 03/29/2025 External Device Data STL ABSTRACTION Provider, Abstract 03/22/2025 External Device Data STL ABSTRACTION Provider, Abstract 03/01/2025 External Device Data STL ABSTRACTION Provider, Abstract 03/01/2025 External Device Data STL ABSTRACTION Provider, Abstract 02/10/2025 External Device Data STL ABSTRACTION Provider, Abstract 02/10/2025 External Device Data STL ABSTRACTION Provider, Abstract 02/09/2025 External Device Data STL ABSTRACTION Provider, Abstract 02/09/2025 External Device Data STL ABSTRACTION Provider, Abstract 02/08/2025 External Device Data STL ABSTRACTION Provider, Abstract 02/01/2025 8:54 PM CDT - 02/01/2025 9:37 PM CDT Emergency [facility] Emergency Medicine [address] [facility] [address] [place] [id number] Adán Beach MD Blister (Primary Dx) Discharge Disposition: Home or Self Care 02/01/2025 Travel from Last 3 Months Immunizations Immunization Administration Dates Next Due (ADACEL/BOOSTRIX)(10 YR UP) TDAP VACCINE, 0.5ML, IM 03/30/2012 (TDVAX)(7 YRS UP) TETANUS AN D DIPHTHERIA TOXOIDS, ADSORBED (2 LF OF TETANUS TOXOID AND 2 LF OF DIPHTHERIA TOXOID), 0.5ML (PF), IM 12/21/2004,04/11/2004 Social History Tobacco Use Types Packs/Day Years Used Date Smoking Tobacco: Every Day Cigarettes 1 26.4 Started: 11/20/1998 Smokeless Tobacco: Never Tobacco Cessation:Ready to Q uit: Not Asked; Counseling Given: Not Answered Alcohol Use Standard Drinks/Week Comments Yes 14 (1 standard drink = 0.6 oz pu re alcohol) Sex and Gender Information Value Date Recorded Sex Assigned at Not on file Legal Sex Male 4:40 PM CDT Gender Identity Not on file Sexual Orientation Not on file Last Filed Vital Signs Vital Sign Reading Time Taken Comments Blood Pressure 125/82 02/01/2025 8:54 PM CDT Pulse 110 01/16/2024 2:05 PM CDT Temperature 36.5 C (97.7 F) 02/01/2025 8:54 PM CDT Respiratory Rate 14 02/01/2025 8:54 PM CDT Oxygen Saturation 98% 02/01/2025 8:54 PM CDT Inhaled Oxygen Concentration - - Weight 64.6 kg (142 lb 6.4 oz) 02/01/2025 8:54 P M CDT Height 177.8 cm (5' 10 ) 02/01/2025 8:54 PM CDT Body Mass Index 20.43 02/01/2025 8:54 PM CDT Plan of Treatment Health Maintenance Due Date Last Done Comments HPV VACCINES (1 - Male 3-dose series) 1996 HEPATITIS B VACCINES (1 of 3 - 19+ 3-dose series) 2000 DTAP/TDAP/TD VACCINES (2 - T d or Tdap) 03/30/2022 03/30/2012, 12/21/2004, 04/11/2004 Preventative Visit- Commercial 09/22/2024 INFLUENZA VACCINE (#1) 2025 01/16/2024 Medical Devices Implanted Type Area Foreign Language Teacher Device Identifier Shelf Expiration Date Model / Serial / Lot Mesh Uhs Oval Uhsov - [id number] Implanted:Qty : 1 on 12/14/2015 by Gloria Jiménez MD at [facility] Mesh Right: Inguinal [employer] [id number] 09/21/2016 SOV / / [id number] Insurance * Guarantor: KRISTOPHER OATES HUBERT Account Type Relation to Patient Date of Phone Billing Address Personal/Family [address] [place] [address] RX [employer]ANS (INTERNAL) [facility] Internal Plans Advance Directives For more information, please contact: [phone] * Full Code (Latest Code Status on File) Date Activated Date Inactivated Comments 12/14/2015 5:37 AM 12/14/2015 6:13 PM Care Teams Airframe Technician Relationship Specialty Start Date End Date Vandana Pagan DO [address] [place] [address] PCP - General Family Practice 03/10/24
--- OUTSIDE RECORDS SUMMARY | 2025-04-27 11:05 | XMS_ITS | Encounter Summary ---
Author Organization [facility] Address [address] [place] [address] Care Team Providers Care Physician Practice Consultant Name Role Phone Unavailable Primary Care Provider Unavailabl e Encounter Details Date Type Department Care Team (Latest Contact Info) Description 05/25/1999 Outpatient Historical [facility] Medicine [address] [place] [phone] Jovani Whyte, NO ADDRESS ON FILE Other acne (Primary Dx) Social History Tobacco Use Types Packs/Day Years Used Date Smoking Tobacco: Never Assessed Sex and Gender Information Value Date Recorded Sex Assigned at Not on file 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
--- OUTSIDE RECORDS SUMMARY | 2025-04-27 11:05 | XMS_ITS | Encounter Summary ---
Author Organization [facility] Address [address] [place] [address] Care Team Providers Care Bingo Attendant Name Role Phone Unavailable Primary Care Provider Unavailabl e Encounter Details Date Type Department Care Team (Latest Contact Info) Description 04/11/2004 Outpatient Historical [facility] Medicine [place] [address] [facility] [address] [place] [phone] Jovani Whyte, NO ADDRESS ON FILE OPEN WOUND OF HIP/THIGH (Primary Dx) Social History Tobacco Use Types Packs/Day Years Used Date Smoking Tobacco: Never Assessed Sex and Gender Information Value Date Recorded Sex Assigned at Not on file 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
--- OUTSIDE RECORDS SUMMARY | 2025-04-27 11:05 | XMS_ITS | Encounter Summary ---
Author Organization [facility] Address [address] [place] [address] Care Team Providers Care Pediatric Speech Therapist Name Role Phone Unavailable Primary Care Provider Unavailabl e Encounter Details Date Type Department Care Team (Latest Contact Info) Description 03/04/2005 Outpatient Historical [facility] Medicine [place] [address] [facility] [address] [place] [phone] Artem Singh, VIKI NO ADDRESS ON FILE Dermatitis due to plant (Primary Dx) Social History Tobacco Use Types Packs/Day Years Used Date Smoking Tobacco: Never Assessed Sex and Gender Information Value Date Recorded Sex Assigned at Not on file 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
--- OUTSIDE RECORDS SUMMARY | 2025-04-27 11:05 | XMS_ITS | Encounter Summary ---
Author Organization [facility] Address [address] [place] [address] Care Team Providers Care Wet Pan Operator Name Role Phone Unavailable Primary Care Provider Unavailabl e Encounter Details Date Type Department Care Team (Latest Contact Info) Description 12/21/2004 Outpatient Historical [facility] Family Medicine- [place] [address] [place] [address] Gilda Duke MD NO ADDRESS ON FILE CELLULITIS, SITE NEC (Primary Dx) Social History Tobacco Use Types Packs/Day Years Used Date Smoking Tobacco: Never Assessed Sex and Gender Information Value Date Recorded Sex Assigned at Not on file 

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
--- OUTSIDE RECORDS SUMMARY | 2025-04-27 11:05 | XMS_ITS | Encounter Summary ---
Author Organization [facility] Address [address] [place] [address] Care Team Providers Care Radiopharmacist Name Role Phone Unavailable Primary Care Provider Unavailabl e Encounter Details Date Type Department Care Team (Latest Contact Info) Description 03/23/1999 Outpatient Historical [facility] Medicine [address] [place] [phone] Jovani Whyte, NO ADDRESS ON FILE Other acne (Primary Dx) Social History Tobacco Use Types Packs/Day Years Used Date Smoking Tobacco: Never Assessed Sex and Gender Information Value Date Recorded Sex Assigned at Not on file 

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
[2025-04-27 11:24] LABS: Hematocrit 41.3 % (37-53); Hemoglobin 14.10 g/dL (11.27-16.99); Mean Corpuscular HGB Conc 34.1 g/dL (30-55); Mean Corpuscular Hemoglobin 32.3 pg (27-33); Mean Corpuscular Volume 94.5 fl (82-101); Nucleated Red Blood Cells % 0 %; Platelet Count 287 10^3/cmm (157-399); Red Blood Count 4.37 10^6/uL (3.85-5.65); White Blood Count 11.81 10^3/uL (3.29-11.43)
--- NOTE | 2025-04-27 11:35 | ED_ITS ---
HPI - Abdominal Pain 2 General: Chief Complaint: Abdominal Pain Stated Complaint: ABD PAIN Time Seen by Provider: 04/27/25 11:02 History of Present Illness: 44-year-old male presents emergency room complaining of abdominal pain. Patient states pain radiates to the right groin he denies any dysuria urgency or frequency. He previously had an or inguinal hernia repair. Patient has been drinking prior to arrival and is very sedate difficult to get history from him. 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 Drug abuse Surgical History No pertinent past surgical history Physical Exam 2 Const: ORIENTATION/CONSCIOUSNESS: Yes awake HENMT: COMMON NORMALS: normocephalic, atraumatic and hearing grossly normal bilaterally HEAD & SCALP: normocephalic and atraumatic Resp: COMMON NORMALS: normal respiratory effort, No retractions, No use of accessory muscles and clear to auscultation bilaterally AUSCULTATION: clear to auscultation bilaterally Cardio: COMMON NORMALS: regular rate, regular rhythm and No murmurs present (Cardio) RATE: regular rate RHYTHM: regular rhythm GI: COMMON NORMALS: Soft to palpation and No hepatosplenomegaly present A USCULTATION: Yes normoactive bowel sounds PALPATION: Yes Soft to palpation, No Tenderness to palpation present (GI), No Guarding due to palpation present (GI) and Yes No hepatosplenomegaly present : OTHER: Incarcerated right inguinal hernia unable to reduce on first attempt. Extremity: COMMON NORMALS: normal to inspection, capillary refill normal, no clubbing, cyanosis or edema, no calf tenderness and no pedal edema Skin: COMMON NORMALS: no rashes or lesions noted GENERAL SKIN EXAM: no rashes or lesions noted Course 2 Vital Signs: Vital signs: Vital Signs Temperature 97.9 F 04/28/25 12:40 Pulse Rate 78 04/28/25 12:40 Respiratory Rate 18 04/28/25 12:40 Blood Pressure 93/55 04/28/25 12:40 Pulse Oximetry 96 04/28/25 12:40 Oxygen Delivery Me thod Room Air 04/28/25 11:00 Oxygen Flow Rate 8 04/27/25 16:28 MDM - Abdominal Pain Medical Decision Making Unable to reduce incarcerated hernia on first attempt at bedside. Concerned about giving patient pain medications because he appears highly intoxicated. Will get blood alcohol level to the CT. Patient would not tolerate attempts to reduce this. Consult surgery they will take patient to the operating room for surgical reduction and repair of the hernia. Medical Records I reviewed the patient's medical records. Lab Data I reviewed the patient's lab results. 04/28/25 04:39 04/27/25 11:11 Labs/Radiology: Radiology Impressions Abdomen/Pelvis CT 04/27/25 11:52 IMPRESSION: 1. RIGHT inguinal hernia contains fluid and omental fat stranding. Hyperemic small bowel extends just into the orifice of the hernia and is likely strangulated or near strangulated. There is no proximal obstruction at this time. Recommend surgical evaluation. Mixed attenuation in the hernia sac is probably a combination of fluid and blood. 2. No free air. Laboratory Results WBC 11.81 10^3/uL (3.29-11.43) H 04/27/25 11:11 RBC 4.37 10^6/uL (3.85-5.65) 04/27/25 11:11 Hgb 14.10 g/dL (11.27-16.99) 04/27/25 11:11 Hct 41.3 % (37-53) 04/27/25 11:11 MCV 94.5 fl (82-101) 04/27/25 11:11 MCH 32.3 pg (27-33) 04/27/25 11:11 MCHC 34.1 g/dL (30-55) 04/27/25 11:11 RDW 13.3 % (12.1-15.1) 04/27/25 11:11 Plt Count 287 10^3/cmm (157-399) 04/27/25 11:11 MPV 8.9 fL (7.4-10.4) 04/27/25 11:11 Neut % (Auto) 77.0 % 04/27/25 11:11 Lymph % (Auto) 14.1 % 04/27/25 11:11 [place] % (Auto) 6.4 % 04/27/25 11:11 Eos % (Auto) 1.8 % 04/27/25 11:11 Baso % (Auto) 0.4 % 04/27/25 11:11 Neut # (Auto) 9.09 10^3/uL (1.8-7.7) H 04/27/25 11:11 Lymph # (Auto) 1.7 10^3/uL (0.8-4.8) 04/27/25 11:11 [place] # (Auto) 0.8 10^3/uL (0.2-0.9) 04/27/25 11:11 Eos # (Auto) 0.2 10^3/uL (0.0-0.8) 04/27/25 11:11 Baso # (Auto) 0.1 10^3/uL (0.0-0.1) 04/27/25 11:11 Nucleated RBC % (auto) 0 % 04/27/25 11:11 Nucleated RBCs # 0.0 /100WBC 04/27/25 11:11 Sodium 141 mmol/L (136-145) 04/27/25 11:11 Potassium 3.7 mmol/L (3.5-5.1) 04/27/25 11:11 Chloride 103 mmol/L (98-107) 04/27/25 11:11 Carbon Dioxide 25 mmol/L (22-29) 04/27/25 11:11 Anion Gap 16.7 (5-19) 04/27/25 11:11 BUN 22 mg/dL (6-20) H 04/27/25 11:11 Creatinine 0.7 mg/dL (0.7-1.2) 04/27/25 11:11 GFR Calculation 123.1 mL/min (90-130) 04/27/25 11:11 Glucose 99 mg/dL (65-115) 04/27/25 11:11 Calculated Osmolality 295 mOsm/kg (285-295) 04/27/25 11:11 Lactic Acid 1.7 mmol/L (0.5-2.2) 04/27/25 11:11 Calcium 8.6 mg/dL (8.5-10.5) 04/27/25 11:11 Magnesium 2.3 mg/dL (1.7-2.3) 04/27/25 11:11 Total Bilirubin 0.6 mg/dL (0.15-1.2) 04/27/25 11:11 AST 24 U/L (0-40) 04/27/25 11:11 ALT 17 U/L (0-41) 04/27/25 11:11 Alkaline Phosphatase 88 U/L (40-130) 04/27/25 11:11 Total Protein 6.9 g/dL (6.6-8.7) 04/27/25 11:11 Albumin 4.1 g/dL (3.5-5.2) 04/27/25 11:11 Globulin 2.8 g/dL (1.3-4.6) 04/27/25 11:11 Lipase 16 U/L (13-60) 04/27/25 11:11 Ethyl Alcohol 40 mg/dL (0-10) H 04/27/25 11:11 All radiology interpretation(s) finalized by discharge Discharge Plan Discharge Patient Disposition: Admitted As Inpatient Admit Provider: Byron Fischer Clinical Impression: Incarcerated right inguinal hernia, Anxiety Condition: Stable Discharge Diet: Usual diet Discharge Activity: Limit activity as instructed Coding Level of Care Code ED Track Service Worker for Chg Ricki
[2025-04-27 11:41] LABS: Alanine Aminotransferase 17 U/L (0-41); Albumin Level 4.1 g/dL (3.5-5.2); Alkaline Phosphatase 88 U/L (40-130); Anion Gap 16.7 (5-19); Aspartate Amino Transferase 24 U/L (0-40); Blood Urea Nitrogen 22 mg/dL (6-20); Calcium 8.6 mg/dL (8.5-10.5); Carbon Dioxide 25 mmol/L (22-29); Chloride 103 mmol/L (98-107); Creatinine Clr Calc Pharmacy 133.1848; Globulin 2.8 g/dL (1.3-4.6); Glucose 99 mg/dL (65-115); Lipase 16 U/L (13-60); Magnesium 2.3 mg/dL (1.7-2.3); Osmolality Calculated 295 mOsm/kg (285-295); Potassium 3.7 mmol/L (3.5-5.1); Sodium 141 mmol/L (136-145); Total Protein 6.9 g/dL (6.6-8.7)
--- NOTE | 2025-04-27 11:52 | CT_ITS ---
WS: [id number] CT ABDOMEN AND PELVIS WITH CONTRAST HISTORY: abd pain TECHNIQUE: Imaging performed of the abdomen and pelvis with IV contrast. Single phase imaging of the abdomen. Coronal and sagittal reformats are submitted. All CT scans at [facility] use at least one of these dose optimization techniques: automated exposure control; mA and/or kV adjustment per patient size (includes targeted exams where dose is matched to clinical indication); or iterative reconstruction. IV CONTRAST: Omnipaque 350; 100 mL IV. Oral contrast: No DLP: 358.86 mGy.cm COMPARISON: 08/08/2021 Lower thorax: Lung bases are clear. Heart is normal size. Small hiatal hernia. Liver/biliary system: Normal size liver with focal fatty sparing along the falciform ligament. No intrahepatic duct dilatation. Normal portal vein. Gallbladder: Normal. No gallstones or wall thickening. No pericholecystic fluid. Pancreas: Normal size pancreas and pancreatic duct. No adjacent inflammation. Spleen: Normal size spleen. No mass or infarct. Adrenal glands: Normal. Right kidney: Normal. Left kidney: Normal. Aorta: Normal. Lymphadenopathy: None. Free fluid: None. GI tract: There is a loop of small bowel extending into the orifice of the RIGHT inguinal canal. There is hyperemia of the small bowel wall. There is stranding and fluid in the hernia sac. The sac contains omental fat and there is a loop of small bowel extending just through the hernia orifice. Small bowel hyperemia. Fat stranding. No obvious proximal obstruction at this time. Abdominal wall: Small umbilical hernia. Pelvis: No free fluid or adenopathy within the pelvis. Bones: Unremarkable. CT/CT abdomen pelvis w con* [id number] IMPRESSION: 1. RIGHT inguinal hernia contains fluid and omental fat stranding. Hyperemic s mall bowel extends just into the orifice of the hernia and is likely strangulat ed or near strangulated. There is no proximal obstruction at this time. Recomme nd surgical evaluation. Mixed attenuation in the hernia sac is probably a combi nation of fluid and blood. 2. No free air.
[2025-04-27 12:10] LABS: Alcohol Level 40 mg/dL (0-10)
[2025-04-27] MEDS: iohexol 350 mg/mL 500 mL Btl (per mL) IV (12:10)
[2025-04-27 12:45] LABS: Lactic Sepsis W/Reflex 1.7 mmol/L (0.5-2.2)
[2025-04-27] MEDS: morphine 4 mg/mL SDV 1 mL IVP ×2 (13:03→13:30)
[2025-04-27] MEDS: ondansetron 2 mg/ML SDV 2 mL 4 MG IVP (13:30)
--- NOTE | 2025-04-27 13:47 | P.HP_ITS ---
Providers/Chief Complaint 2 Chief Complaint: ABD PAIN History of Present Illness Kristopher Oates is a 44 year old male history of alcohol abuse who presented with an incarcerated right inguinal hernia containing bowel. Unable to reduce. Patient is intoxicated presumably alcohol. Father at bedside patient had a prior right inguinal hernia repair with mesh. Patient complaining of right groin pain. Medications/Allergies Home Medications ?Medication ?Instructions ?Recorded ?Confirmed ?Last Taken ?Type No Known Home Medications 04/27/25 08/0 03/16 Unknown History Allergies Allergy/AdvReac Type Severity Reaction Status Date / Time Penicillins Allergy Unknown Verified 08/08/21 14:23 PFSH Acute 2 PFSH: Medical History (Updated 04/27/25 @ 14:35 by Byron Fischer MD) Methamphetamine abuse Adjustment disorder with mixed disturbance of emotions and conduct Drug abuse Surgical History No pertinent past surgical history Vitals/I&O/Wt Last Vital Signs Pulse 78 04/27/25 12:17 Resp 16 04/27/25 11:01 BP 105/71 04/27/25 12:17 Pulse Ox 100 04/27/25 12:17 O2 Del Method Room Air 04/27/25 12:17 Weight last 48 hrs Weight 140 lb Physical Exam 2 Narrative: Chest: Unlabored breathing room air. No lymphadenopathy. Heart: Regular rate and rhythm. Abdomen: Soft, nontender, nondistended. No masses or lymphadenopathy. Incarcerated right inguinal hernia Data 04/27/25 11:11 04/27/25 11:11 A&P Assessment and plan 1. Incarcerated right inguinal hernia: Plan: 44-year-old male history of alcohol abuse who presents with an incarcerated right inguinal hernia that contains bowel. Patient last drank at 8 AM. Due to risk of bowel ischemia we will proceed to the OR emergently. Patient and father understand there is a high risk for aspiration. Patient and father understand that he is at high risk of perioperative complications including hernia recurrence, mesh infection, testicular ischemia. Discussed risk and benefits and patient and father agreed to proceed with open right inguinal hernia repair with mesh and possible exploratory laparotomy possible bowel resection. PDMP PDMP Reviewed: Not Reviewed Attestations 2 Medical Necessity Statement*: IV fluids, IV pain meds, serial physical exams Coding Level of Care Code 97345 Diagnoses Incarcerated right inguinal hernia K40.30
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
[2025-04-27] MEDS: ceFAZolin 2,000 mg SDV 2000 MG IVP (14:49)
[2025-04-27] MEDS: BUPivacaine 0.25% INJ 10 mL INJECTION (15:09)
[2025-04-27] MEDS: lidocaine-epi 1% 20 mL INJ 10 ML INJECTION (15:09)
--- NOTE | 2025-04-27 15:48 | PM.OP ---
Operative Report Date of procedure: April 27, 2025 Pre-op diagnosis: Incarcerated right inguinal hernia Post-op diagnosis: same Post-op findings: Hernia sac contained omentum only. Reduced back to the abdomen. Part of the hernia sac was sent to pathology. Fixed hernia defect using extra-large plug and patch mesh. Procedure done: Open right inguinal hernia repair with mesh Implants: Extra-large plug and patch mesh Specimens removed/disposition: Hernia sac sent to pathology Pathology: Hernia sac Surgeon: Byron Fischer MD Tenter Frame Back Tender: N/A Anesthesia: General Estimated blood loss (mL): 50 Complications: N/A Findings: Hernia sac contained omentum only. Reduced back to the abdomen. Part of the hernia sac was sent to pathology. Fixed hernia defect using extra-large plug and patch mesh. Condition: stable Disposition: observation Brief History: 44-year-old male who had a prior open right inguinal hernia repair with mesh. Returned with a recurrent right inguinal hernia with incarcerated omentum and bowel on CT scan. Discussed risk and benefits and patient and father agreed to proceed with open right inguinal hernia repair with mesh, possible exploratory laparotomy and bowel resection. Procedure: Patient brought to the OR and placed supine on the table. SCDs were placed and functioning. Preoperative ancef was administered. General anesthesia was induced. A valverde catheter was placed without any complications. The right groin was prepped and draped in the usual sterile fashion. Local infiltration at the surgical site was done using lidocaine/bupivacaine with epinephrine. A 7cm incision was carried out over the right inguinal canal. Tissue dissection was carried down to the external oblique fascia using electrocautery. The fascia was incised. I encountered a large mesh patch and a bulging hernia sac right next to it. I proceeded to dissect the hernia sac off the mesh using Starzl Metzenbaums. I then transected the mesh using scissors. I open the hernia sac and found only omentum in it. I elected to reduce the omentum back in the abdomen. I did not find any bowel in the hernia sac. The cord structures were identified. Cord structures were dissected of the hernia sac. After incising the old mesh, I ended up with a large fascial defect. The plug was placed in order to recreate the posterior inguinal wall. It was reinforced using a mesh patch. The plug was fixed using 2-0 ethibond to the cojoint ligament and inguinal ligament with interrupted sutures. The mesh patch was sutured to the cojoint tendon and the inguinal ligament using interrupted sutures with 2-0 ethibond. The external oblique fascia was closed using 2-0 vicryl. Skin was closed using 4-0 monocryl and surgical glue. Valverde was removed. The patient woke up from anesthesia and was transferred to PACU without any complications.
--- NOTE | 2025-04-27 16:35 | ANE.PACU2 ---
Inpatient post-anesthesia follow up: Airway intact: Yes Vital signs: Temperature 98.2 F Pulse Rate 84 Respiratory Rate 17 Blood Pressure 98/60 Pulse Oximetry 97 Oxygen Delivery Me thod Room Air Oxygen Flow Rate 8 Fraction of Inspir ed Oxygen Hydration adequate: Yes Nausea and vomiting: No Pain level: 1 Mental status: Baseline
[2025-04-27] MEDS: acetaminophen 1,000 MG/100 ML PIGGYBACK 400 MG IV (18:02)
--- NOTE | 2025-04-27 23:29 | PC.NURSE ---
Patient refused 2257 dose to Toradol.
[2025-04-28] MEDS: acetaminophen 1,000 MG/100 ML PIGGYBACK 400 MG IV (01:03)
[2025-04-28 02:44] VITALS: BP 102/62; PULSE 62; RESP 16; TEMP 36.8; O2SAT 98
[2025-04-28 03:49] VITALS: BP 100/62; PULSE 70; RESP 17; TEMP 36.8; O2SAT 94
[2025-04-28 05:25] LABS: Hematocrit 43.0 % (37-53); Hemoglobin 14.10 g/dL (11.27-16.99); Mean Corpuscular HGB Conc 32.8 g/dL (30-55); Mean Corpuscular Hemoglobin 32.0 pg (27-33); Mean Corpuscular Volume 97.7 fl (82-101); Nucleated Red Blood Cells % 0 %; Platelet Count 301 10^3/cmm (157-399); Red Blood Count 4.40 10^6/uL (3.85-5.65); White Blood Count 17.28 10^3/uL (3.29-11.43)
[2025-04-28 07:00] VITALS: BP 98/60; PULSE 84; RESP 17; TEMP 36.8; O2SAT 97
--- NOTE | 2025-04-28 10:18 | P.PN_ITS ---
Subjective 2 Subjective: No abdominal pain Tolerating regular diet Right groin pain under control Afebrile Noted leukocytosis Vitals/I&O/Wt Last Vital Signs Temp 98.2 F 04/28/25 07:00 Pulse 84 04/28/25 07:00 Resp 17 04/28/25 07:00 BP 98/60 04/28/25 07:00 Pulse Ox 97 04/28/25 07:00 O2 Del Method Room Air 04/28/25 07:00 O2 Flow Rate 8 04/27/25 16:28 04/27/25 04/28/25 04/28/25 22:59 06:59 14:59 Intake Total 2900 / 2900 100 / 3000 Output Total 250 / 250 600 / 850 Balance 2650 / 2650 -500 / 2150 Weight last 48 hrs Weight 140 lb 2 oz Weight 140 lb Weight 140 lb Physical Exam 2 Narrative: Chest: Unlabored breathing room air. No lymphadenopathy. Heart: Regular rate and rhythm. Abdomen: Soft, nontender, nondistended. Right groin: Incision clean dry intact. Mild edema. Urinary Catheter Management: Lopez: Cath Placed During This Visit: yes, but has since been removed by the nurse Urinary Catheter Date of Insertion: 04/27/25 Urinary Catheter Time of Insertion: 14:45 Date Urinary Catheter Removed: 04/27/25 Time Urinary Catheter Discontinued: 15:49 Data 04/28/25 04:39 04/27/25 11:11 A&P Assessment and plan 1. Incarcerated right inguinal hernia: Plan: 44-year-old male who presented with an incarcerated right inguinal hernia. Today tolerating a diet. No abdominal pain. Right groin pain much improved. Cleared for discharge. PDMP PDMP Reviewed: Not Reviewed Attestations 2 Medical Necessity Statement*: IV fluids, IV pain meds Coding Level of Care Code 89045 Diagnoses Incarcerated right inguinal hernia K40.30
--- NOTE | 2025-04-28 10:25 | PM.DCS ---
Discharge Providers Date of Admission: 04/27/25 16:27 Date of Discharge: April 28, 2025 Attending Provider at Admission: Byron Fischer MD Attending Provider at Discharge: Byron Fischer MD Diagnoses at Discharge Discharge Diagnosis 1. Incarcerated right inguinal hernia: Reason for Visit Reason for Visit: ABD PAIN Hospital Course Hospital Course 44-year-old male who presented with an incarcerated right inguinal hernia. Hernia sac contained omentum only. Hernia repair with mesh. Patient did well postoperatively. No abdominal pain. Right groin pain under control. Tolerating a diet. Will discharge and he can follow-up in 2 weeks. No lifting greater than 10 pounds for 6 weeks. Physical Exam Narrative: Chest: Unlabored breathing room air. No lymphadenopathy. Heart: Regular rate and rhythm. Abdomen: Soft, nontender, nondistended. No masses or lymphadenopathy. Right groin: Incision clean dry intact. Mild edema. Urinary Catheter Management: Lopez: Cath Placed During This Visit: yes, but has since been removed by the nurse Urinary Catheter Date of Insertion: 04/27/25 Urinary Catheter Time of Insertion: 14:45 Date Urinary Catheter Removed: 04/27/25 Time Urinary Catheter Discontinued: 15:49 Discharge Data Studies Completed and Pending Completed Studies During Hospitalization Category Date Time Status CT abdomen pelvis w con* [id number] Stat Cat Scan 04/27/25 11:52 Completed Pending at discharge Category Date Time Status Pathology: Surgical [PTH] Routine Pth 04/27/25 15:41 Received Radiology Impressions Abdomen/Pelvis CT 04/27/25 11:52 IMPRESSION: 1. RIGHT inguinal hernia contains fluid and omental fat stranding. Hyperemic small bowel extends just into the orifice of the hernia and is likely strangulated or near strangulated. There is no proximal obstruction at this time. Recommend surgical evaluation. Mixed attenuation in the hernia sac is probably a combination of fluid and blood. 2. No free air. Laboratory Results WBC 17.28 10^3/uL (3.29-11.43) H 04/28/25 04:39 RBC 4.40 10^6/uL (3.85-5.65) 04/28/25 04:39 Hgb 14.10 g/dL (11.27-16.99) 04/28/25 04:39 Hct 43.0 % (37-53) 04/28/25 04:39 MCV 97.7 fl (82-101) 04/28/25 04:39 MCH 32.0 pg (27-33) 04/28/25 04:39 MCHC 32.8 g/dL (30-55) 04/28/25 04:39 RDW 13.5 % (12.1-15.1) 04/28/25 04:39 Plt Count 301 10^3/cmm (157-399) 04/28/25 04:39 MPV 9.3 fL (7.4-10.4) 04/28/25 04:39 Neut % (Auto) 83.2 % 04/28/25 04:39 Lymph % (Auto) 9.4 % 04/28/25 04:39 Luna % (Auto) 6.6 % 04/28/25 04:39 Eos % (Auto) 0.1 % 04/28/25 04:39 Baso % (Auto) 0.2 % 04/28/25 04:39 Neut # (Auto) 14.39 10^3/uL (1.8-7.7) H 04/28/25 04:39 Lymph # (Auto) 1.6 10^3/uL (0.8-4.8) 04/28/25 04:39 Luna # (Auto) 1.1 10^3/uL (0.2-0.9) H 04/28/25 04:39 Eos # (Auto) 0.0 10^3/uL (0.0-0.8) 04/28/25 04:39 Baso # (Auto) 0.0 10^3/uL (0.0-0.1) 04/28/25 04:39 Nucleated RBC % (auto) 0 % 04/28/25 04:39 Nucleated RBCs # 0.0 /100WBC 04/28/25 04:39 Sodium 141 mmol/L (136-145) 04/27/25 11:11 Potassium 3.7 mmol/L (3.5-5.1) 04/27/25 11:11 Chloride 103 mmol/L (98-107) 04/27/25 11:11 Carbon Dioxide 25 mmol/L (22-29) 04/27/25 11:11 Anion Gap 16.7 (5-19) 04/27/25 11:11 BUN 22 mg/dL (6-20) H 04/27/25 11:11 Creatinine 0.7 mg/dL (0.7-1.2) 04/27/25 11:11 GFR Calculation 123.1 mL/min (90-130) 04/27/25 11:11 Glucose 99 mg/dL (65-115) 04/27/25 11:11 Calculated Osmolality 295 mOsm/kg (285-295) 04/27/25 11:11 Lactic Acid 1.7 mmol/L (0.5-2.2) 04/27/25 11:11 Calcium 8.6 mg/dL (8.5-10.5) 04/27/25 11:11 Magnesium 2.3 mg/dL (1.7-2.3) 04/27/25 11:11 Total Bilirubin 0.6 mg/dL (0.15-1.2) 04/27/25 11:11 AST 24 U/L (0-40) 04/27/25 11:11 ALT 17 U/L (0-41) 04/27/25 11:11 Alkaline Phosphatase 88 U/L (40-130) 04/27/25 11:11 Total Protein 6.9 g/dL (6.6-8.7) 04/27/25 11:11 Albumin 4.1 g/dL (3.5-5.2) 04/27/25 11:11 Globulin 2.8 g/dL (1.3-4.6) 04/27/25 11:11 Lipase 16 U/L (13-60) 04/27/25 11:11 Ethyl Alcohol 40 mg/dL (0-10) H 04/27/25 11:11 Vitals Last Vital Signs Temp 98.2 F 04/28/25 07:00 Pulse 84 04/28/25 07:00 Resp 17 04/28/25 07:00 BP 98/60 04/28/25 07:00 Pulse Ox 97 04/28/25 07:00 O2 Del Method Room Air 04/28/25 07:00 O2 Flow Rate 8 04/27/25 16:28 Discharge Plan Discharge Patient Disposition: Home Condition: Stable Prescriptions: New oxycodone 5 mg tablet 5 mg PO Q6H PRN (Reason: pain) 10 Days Qty: 20 0RF Discharge Order = DC NOW: Discharge Order (Routine); Ordered 04/28/25 Ordered By: Byron Fischer Referrals: Crisis Stabilization [Other] Referral Note: 7 days/week 8am-6pm [facility] [Outside] Referral Note: ? Follow up as a walk in at [facility], walk in hours are Friday-Friday from 7:30AM-3:00PM, first come, first seen. Once you do this assessment you will be referred for appropriate services. Byron Fischer MD [Physician, General Surgery] - 2 weeks Discharge Diet: Usual diet Discharge Activity: Limit activity as instructed Patient Instructions: Opioid Safety, Patient Portal & Suha Instructions Activity Restrictions/Additional Instructions: 1. No heavy exercise or lifting greater than 10lbs for 6 weeks. 2. No pools, saunas, bathtubs for 2 weeks. Ok to shower the day following surgery. Ok to remove any dressings you may have the day following surgery. Use jock strap as needed for comfort. 3. Do not drive if taking narcotics. 4. You may take over the counter tylenol 650mg every 6 hrs and ibuprofen 400mg every 6 hrs as needed for 5 days in addition to the oxycodone. 5. Follow-up in clinic in 2 weeks. 6. Call the office if you have any concerns or questions. Discharge Attestations Time Spent in Discharge Care*: greater than 30 min Quality Metrics Clinical Quality Measures [ No reported AMI, CVA or VTE this stay] Coding Level of Care Code Acute Code for Chg Fwd Diagnoses Incarcerated right inguinal hernia K40.30
[2025-04-28 11:00] VITALS: BP 93/55; PULSE 78; RESP 18; TEMP 36.6; O2SAT 96
[2025-04-28 12:40] VITALS: BP 93/55; PULSE 78; RESP 18; TEMP 36.6; O2SAT 96
== END 2025-04-28 12:42 | disposition home or self-care (01) ==
LOC: ER 13:49 → OR 13:50 → MEDSURG 16:28
PROVIDERS: Admitting Provider Student in an Organized Health Care Education/Training Program; Emergency Provider Family Medicine; Visit Provider Student in an Organized Health Care Education/Training Program
PROC: (CPT 49507; principal; 2025-04-27 15:10)
DX: K40.30 Unilateral inguinal hernia, with obstruction, without gangrene, not specified as recurrent (principal); F15.11 Other stimulant abuse, in remission; F10.11 Alcohol abuse, in remission
CPT/HCPCS: 49507; 36415; 51702; 74177; 80053; 80307; 83605; 83690; 83735; 85025; 88302; 93005; 96374; 96375; 96376; 99285; C1781; G0378; J0131; J0330; J0690; J1100; J1171; J1885; J2250; J2270; J2371; J2405; J2704; J3010; J3490; J7030; J9999; P9045